=== PATIENT | female | born 1945 | race Caucasian/White ===

== ENCOUNTER → 2017-08-13 13:31 | Outpatient (CLI) | payer MEDICARE, SELFPAY ==
--- NOTE | 2017-08-13 13:37 | CT_ITS ---
STUDY: LOW DOSE CT LUNG CANCER SCREENING REASON FOR EXAM: Female, 71 years old. Current smoker. 50+ years smoking history. Currently smokes 2 packs per week. RADIATION DOSAGE (If Supplied By Facility): CTDIvol = ( 3.40 ) mGy, DLP = ( 105.09 ) mGycm TECHNIQUE: No contrast was administered. Low dose technique was utilized (average mAS-38 and kVp 120). 1.25 mm axial source images with a slice interval of 1.25-mm were reconstructed in lung windows. 2.5 mm axial source images with a slice interval of 2.5-mm were reconstructed in lung windows. 5.0 mm axial source images with a slice interval of 5.0-mm were reconstructed in soft tissue windows. Nodule measured using lung windows on PACS and/or independent workstation with automated measurement of minimum and maximum diameter. Nodule measurement reported as average diameter rounded to the nearest whole number. Growth is defined as an increase ins size of greater than 1.5 mm. COMPARISON: None. NODULES: Total lung nodules (excluding granulomas): 0 Emphysema: There are mild emphysematous changes. There is linear scarring in the right middle lobe and lower lingula. Endobronchial lesion: None Aorta: There is atherosclerotic tortuosity of the thoracic aorta without aneurysm. Coronary arteries: There are minimal coronary artery calcifications. Heart: The heart is normal in size. Pulmonary artery: Normal in size. Mediastinal nodes: None Other chest and abdominal findings: There are degenerative changes of the thoracic spine. CT/Low Dose CT Lung Screening IMPRESSION: Lung-RADS category 1 - Continue annual screening with LDCT in 12 months. IMPORTANT NOTES FOR USE: ACR Lung-RADS Version 1.0 Assessment Categories Release Date: July 13, 2013 Category: Coded 0-4 bases on nodule(s) with highest degree of suspicion. Negative screen is defined as categories 1 and 2; a positive screen is defined as categories 3 and 4. Category 3 and 4A nodules that are unchanged on interval CT should be coded as category 2, and individuals returned to screening in 12 months. Category 4X: Category 3 or 4 nodules with additional imaging findings that increase the suspicion of lung cancer, such as spiculation, GGN that doubles in size in 1 year, enlarged lymph notes, etc. Category Modifiers: S (significant finding unrelated to lung cancer) and C (prior history of treated lung cancer) may be added to the 0-4 Lung-RADS Electronically Signed: Marito Batres DO at 17:15 EDT Tel [phone], Service support ,
== END ==
PROVIDERS: Family Provider Family Medicine; PCP Family Medicine; Visit Provider Family Medicine
DX: Z12.2 Encounter for screening for malignant neoplasm of respiratory organs (principal); Z87.891 Personal history of nicotine dependence
CPT/HCPCS: G0297

== ENCOUNTER → 2018-10-31 15:14 | Outpatient (CLI) | payer MEDICARE, SELFPAY ==
--- NOTE | 2018-10-31 15:18 | CT_ITS ---
STUDY: LOW DOSE CT LUNG CANCER SCREENING REASON FOR EXAM: Female, 73 years old. Tobacco RADIATION DOSAGE (If Supplied By Facility): CTDIvol = ( 4.02 ) mGy, DLP = ( 140.44 ) mGycm TECHNIQUE: No contrast was administered. Low dose technique was utilized (average mAS-38 and kVp 120). 1.25 mm axial source images with a slice interval of 1.25-mm were reconstructed in lung windows. 2.5 mm axial source images with a slice interval of 2.5-mm were reconstructed in lung windows. 5.0 mm axial source images with a slice interval of 5.0-mm were reconstructed in soft tissue windows. Nodule measured using lung windows on PACS and/or independent workstation with automated measurement of minimum and maximum diameter. Nodule measurement reported as average diameter rounded to the nearest whole number. Growth is defined as an increase ins size of greater than 1.5 mm. COMPARISON: CT chest August 13, 2017 NODULES: Total lung nodules (excluding granulomas): 0 Emphysema: Mild emphysema. Endobronchial lesion: None Aorta: Normal Coronary arteries: Heart: Normal Pulmonary artery: Normal Mediastinal nodes: Normal Other chest and abdominal findings: Normal CT/Low Dose CT Lung Screening IMPRESSION: No significant pulmonary nodules or masses. LRADS 1. IMPORTANT NOTES FOR USE: ACR Lung-RADS Version 1.0 Assessment Categories Release Date: July 13, 2013 Category: Coded 0-4 bases on nodule(s) with highest degree of suspicion. Negative screen is defined as categories 1 and 2; a positive screen is defined as categories 3 and 4. Category 3 and 4A nodules that are unchanged on interval CT should be coded as category 2, and individuals returned to screening in 12 months. Category 4X: Category 3 or 4 nodules with additional imaging findings that increase the suspicion of lung cancer, such as spiculation, GGN that doubles in size in 1 year, enlarged lymph notes, etc. Category Modifiers: S (significant finding unrelated to lung cancer) and C (prior history of treated lung cancer) may be added to the 0-4 Lung-RADS Electronically Signed: Jason Mclaughlin, at 16:35 EDT Tel , Service support ,
== END ==
PROVIDERS: Family Provider Family Medicine; PCP Family Medicine; Referring Provider Internal Medicine Pulmonary Disease; Visit Provider Internal Medicine Pulmonary Disease
DX: Z12.2 Encounter for screening for malignant neoplasm of respiratory organs (principal); Z87.891 Personal history of nicotine dependence
CPT/HCPCS: G0297

== ENCOUNTER → 2019-10-14 14:49 | Outpatient (CLI) | payer MEDICARE, SELFPAY ==
[2019-10-14 14:06] VITALS: BMI 38.5
[2019-10-14 15:37] LABS: Anion Gap 4 (5-15); BUN 18 mg/dL (7-18); BUN/Creat Ratio 16.4 RATIO (10-20); Calcium,Total 9.2 mg/dL (8.5-10.1); Chloride 110 mmol/L (98-107); EST Glomerular Filtration Rate 52 mL/min (>60); Est Glom Filt Rate - Afr Amer 63 mL/min (>60); Glucose 85 mg/dL (74-106); Potassium 4.2 mmol/L (3.5-5.1); Sodium Level 140 mmol/L (136-145)
[2019-10-14 16:08] LABS: BNP,B-Type NATRIURETIC PEPTIDE 98.7 pg/mL (0-100)
== END ==
PROVIDERS: PCP Family Medicine; Referring Provider Internal Medicine Cardiovascular Disease; Visit Provider Internal Medicine Cardiovascular Disease
DX: R06.00 Dyspnea, unspecified (principal)
CPT/HCPCS: 36415; 80048; 83880

== ENCOUNTER → 2019-10-29 12:52 | Outpatient (CLI) | payer MEDICARE, SELFPAY ==
[2019-10-14 14:06] VITALS: BMI 38.5
--- NOTE | 2019-10-29 12:54 | ECHOD_ITS ---
Reason For Study: Dyspnea/SOB Procedure This was a 2D Doppler, Color Flow transthoracic echocardiogram. Exam performed in department. Left Ventricle Normal LV size. Left ventricular systolic function is normal. The estimated ejection fraction is 55 %. Stage 1 diastolic dysfunction. No regional wall motion abnormalities noted. Right Ventricle Normal RV size. Normal systolic function. Atria Normal left atrium. Normal right atrium. Bubble contrast study negative for right to left interatrial shunt. Mitral Valve Normal mitral valve. Tricuspid Valve Normal tricuspid valve. Mild (1+) tricuspid valve insufficiency. Pulmonary artery systolic pressure is 44 mmHg. Aortic Valve Normal aortic valve. Pulmonic Valve Normal pulmonic valve. Great Vessels Normal aortic root. The pulmonary artery is normal size. Normal inferior vena cava. Pericardium/Pleural No pericardial effusion. Medication Performed a rapid injection of agitated mix of 9 cc saline and 1cc air to assess for atrial septal defect. MMode/2D Measurements & Calculations LVIDd: 4.6 cm IVSd: 0.89 cm Ao root diam: 2.7 cm LVIDs: 2.8 cm LVPWd: 1.2 cm RVDd: 3.1 cm FS: 38.2 % LAV(MOD-bp): 54.3 ml LVAd ap4: 21.5 cm2 SV(MOD-sp4): 31.7 ml LAV(MOD-bp) Indexed: 27.8 ml/m2 EDV(MOD-sp4): 52.1 ml LAV(MOD-sp2): 66.2 ml EDV(sp4-el): 51.6 ml LAV(MOD-sp4): 41.2 ml LVAs ap4: 11.4 cm2 ESV(MOD-sp4): 20.5 ml ESV(sp4-el): 17.1 ml EF(MOD-sp4): 60.8 % EF(sp4-el): 66.9 % SV(sp4-el): 34.5 ml LA A4 area: 17.4 cm2 LA dimension(2D): 3.7 cm RA A4 area: 12.9 cm2 Doppler Measurements & Calculations MV E max curt: 87.4 cm/sec Lat Peak E' Curt: 10.3 cm/sec Med Peak E' Curt: 6.5 cm/sec MV A max curt: 120.0 cm/sec E/E' lat: 8.5 E/E' med: 13.5 MV E/A: 0.73 Ao V2 max: 198.9 cm/sec LV V1 max: 118.3 cm/sec PA V2 max: 108.7 cm/sec Ao max P.8 mmHg LV V1 max P.6 mmHg Ao V2 mean: 131.7 cm/sec Ao mean P.0 mmHg Ao V2 VTI: 36.6 cm TR max curt: 319.7 cm/sec TR max P.9 mmHg Interpretation Summary Normal LV size. Left ventricular systolic function is normal. The estimated ejection fraction is 55 %. Stage 1 diastolic dysfunction. Bubble contrast study negative for right to left interatrial shunt. Pulmonary artery systolic pressure is 44 mmHg. Ordering Physician: Paul Razo Referring Physician: Kermit Ramirez Performed By: Catia Martinez, RDRAYRAY, RVT
== END ==
PROVIDERS: PCP Family Medicine; Referring Provider Internal Medicine Cardiovascular Disease; Visit Provider Internal Medicine Cardiovascular Disease
DX: R06.00 Dyspnea, unspecified (principal); R06.02 Shortness of breath
CPT/HCPCS: 93306; A4216

== ENCOUNTER → 2020-09-08 14:45 | Outpatient (CLI) | payer MEDICARE, SELFPAY ==
[2019-10-14 14:06] VITALS: BMI 38.5
--- NOTE | 2020-09-08 14:53 | CT_ITS ---
STUDY: LOW DOSE CT LUNG CANCER SCREENING REASON FOR EXAM: Female, 74 years old. Tobacco use. RADIATION DOSAGE (If Supplied By Facility): CTDIvol = ( 4.02 ) mGy, DLP = ( 132.40 ) mGycm TECHNIQUE: No contrast was administered. Low dose technique was utilized (average mAS-38 and kVp 120). 1.25 mm axial source images with a slice interval of 1.25-mm were reconstructed in lung windows. 2.5 mm axial source images with a slice interval of 2.5-mm were reconstructed in lung windows. 5.0 mm axial source images with a slice interval of 5.0-mm were reconstructed in soft tissue windows. Nodule measured using lung windows on PACS and/or independent workstation with automated measurement of minimum and maximum diameter. Nodule measurement reported as average diameter rounded to the nearest whole number. Growth is defined as an increase ins size of greater than 1.5 mm. COMPARISON: 10/31/2018. NODULES: Nodule #: 1 Density: Solid Lung location: Right lower lobe: Pleural-based Location in series: Series Number: 2 Image: 168 Size - D1 x D2 mm: 15.8 x 14.4 mm: 15 mm average diameter Margin: Irregular Shape: Triangular Calcification: No Fat: No Temporal comparison: None Total lung nodules (excluding granulomas): 1 Emphysema: Diffuse emphysematous changes in the lungs. There is atelectatic changes in the lingula along the left oblique fissure. Endobronchial lesion: None Aorta: Diffuse atherosclerotic changes unchanged from prior study. Coronary arteries: Stable minimal coronary artery calcifications. Heart: Normal in size Pulmonary artery: Normal Mediastinal nodes: Stable nonspecific AP window lymphadenopathy. Other chest and abdominal findings: Degenerative changes of the thoracic spine. CT/Low Dose CT Lung Screening IMPRESSION: 1. Irregular density at the right lung base, labeled nodule 1. This is thought to be atelectatic rather than represent a mass. Mass however cannot be completely ruled out. 2. Stable emphysematous changes without other major on the prior study. Lung-RADS category 4A - Screening at 3 months with LDCT or evaluation with PET/CT may be used. IMPORTANT NOTES FOR USE: ACR Lung-RADS Version 1.1 Assessment Categories Release Date: 2018 Category: Coded 0-4 bases on nodule(s) with highest degree of suspicion. Negative screen is defined as categories 1 and 2; a positive screen is defined as categories 3 and 4. Category 3 and 4A nodules that are unchanged on interval CT should be coded as category 2, and individuals returned to screening in 12 months. Category 4X: Category 3 or 4 nodules with additional imaging findings that increase the suspicion of lung cancer, such as spiculation, GGN that doubles in size in 1 year, enlarged lymph notes, etc. Category Modifiers: S (significant finding unrelated to lung cancer) Electronically Signed: Marito Batres DO at 16:13 EDT Tel [phone], Service support ,
== END ==
PROVIDERS: PCP Family Medicine; Referring Provider Internal Medicine Pulmonary Disease; Visit Provider Internal Medicine Pulmonary Disease
DX: Z87.891 Personal history of nicotine dependence (principal); Z12.2 Encounter for screening for malignant neoplasm of respiratory organs
CPT/HCPCS: 71271

== ENCOUNTER → 2020-10-04 14:23 | Outpatient (CLI) | payer MEDICARE, SELFPAY ==
[2019-10-14 14:06] VITALS: BMI 38.5
--- NOTE | 2020-10-11 17:00 | PET_ITS ---
EXAMINATION: FDG PET-CT INDICATIONS: A 74-year-old female with reported history of pulmonary nodularity. COMPARISON EXAMINATION: CT of the chest report dated 09/08/20 TECHNIQUE: Following the intravenous administration of 11.47 mCi of F-18 deoxyglucose via the left antecubital fossa, multiplanar image acquisitions of the neck, chest, abdomen and pelvis to level of mid thigh, obtained at one hour post radiopharmaceutical administration contemporaneously interpreted with the current CT of the neck, chest, abdomen and pelvis, to level of mid thigh, dated 10/11/[address] of the chest report dated 09/08/20 reveals: BLOOD GLUCOSE LEVEL:?? 104 mg/dl? FINDINGS: 1. There is no quantitative scintigraphic evidence of abnormal increased glucose metabolism within the context of the right lower posterolateral lung-right lower lobe to correlate with structural changes noted on review of CT of the thorax dated 10/11/20. 2. Normal physiologic distribution of the radiopharmaceutical is apparent in the hepatic and splenic parenchyma, both renal units, bladder and visualized intestinal tract. The visualized portion of the cerebral cortical-subcortical structures demonstrate symmetric and preserved glucose metabolism. Diffuse radiopharmaceutical concentration is noted in all four quadrants of the abdomen and pelvis. There is an increase in radiopharmaceutical concentration observed in the fourth-fifth lumbar vertebrae at the intervertebral space to the left of the midline, second cervical vertebra involving the vertebral body to the left of the midline in proximity to the intervertebral disc space most consistent with components of degenerative arthritis. Pertinent CT findings are as follows: CHEST: The non-calcified density defined in the right lower posterior lung-right lower lobe reveals no evidence of increased tracer concentration. There are no parenchymal densities-nodules defined in the right and left hemithorax with discernible increased FDG concentration. Interfissural fluid defined in the left hemithorax is non-glucose avid. The previously described right lung parenchymal densities are non-glucose avid as described. Bilateral axillary soft tissue densities with fatty hilus are ametabolic. Subcentimeter mediastinal soft tissue is non-glucose avid. There is atherosclerotic calcification defined in the thoracic aorta without evidence of dilatation-aneurysm formation. Coronary arterial calcification is observed. ABDOMEN AND PELVIS: The gallbladder is surgically absent. Cyst formation is defined in the bilateral kidneys. There is atherosclerotic calcification defined in the abdominal aorta without evidence of dilatation-aneurysm formation. Pelvic arterial calcification is demonstrated. Colonic diverticulosis is noted without evidence of diverticulitis. Bilateral inguinal soft tissue densities with fatty hilus are non-glucose avid. SKELETAL: Degenerative changes are noted in the cervical, thoracic and lumbar spine without evidence of increased radiopharmaceutical concentration. PET/PET/CT Tumor Base -Thigh Init IMPRESSION: 1. NEGATIVE EXAMINATION. There is no quantitative scintigraphic evidence of abnormal increased glucose metabolism within the context of the right lower posterolateral lung-right lower lobe to correlate with structural changes noted on review of CT of the thorax dated 10/11/20. 2. Anatomic stability may be ensured in the nonglucose avid right lower lobe parenchymal density with repeat CT of the thorax in 3-6 months. (Craig, Seminars in Thoracic and Cardiovascular Surgery 14:292, 2001). Electronic Signature Rosales Hearn D.O. Accurate Quantification of SUVs for this report are calculated using the exclusive [employer] Technology. (U.S. Patent No. 10, 674, 983). Standardization and correction of the FDG SUV metric via [employer] technology allow for vendor non-specific objective quantitative examination comparison and optimization of the sensitivity and specificity of the FDG PET-CT examination. Electronically Signed: Rosales Hearn DO at 21:58 EDT Tel , Service support ,
== END ==
PROVIDERS: PCP Family Medicine; Referring Provider Internal Medicine Pulmonary Disease; Visit Provider Internal Medicine Pulmonary Disease
DX: R69 Illness, unspecified (principal)
CPT/HCPCS: 78815; A9552

== ENCOUNTER → 2020-11-01 12:00 | Outpatient (CLI) | payer MEDICARE, SELFPAY ==
[2019-10-14 14:06] VITALS: BMI 38.5
[2020-11-01 13:27] LABS: Absolute Lymphocyte Count 1.22 X10^3/uL (0.83-4.51); Absolute Neutrophil Count 7.3 X10^3/uL (2.0-7.7); Basophil# 0.08 X10^3/uL; Basophil% 0.9 % (0-1); Eosinophil# 0.11 X10^3/uL; Eosinophils% 1.2 % (0-5); Hematocrit 34.5 % (37-47); Hemoglobin 10.5 g/dL (12.0-15.0); Lymphocyte # 1.22 X10^3/ul (0.83-4.51); Lymphocyte % 13.1 % (19-41); Mean Corp Hgb Conc 30.4 g/dL (32-36); Mean Corpuscular Volume 78.9 fL (81-99); Mean Platelet Vol. 9.6 fl (6.2-12.0); Monocyte# 0.58 X10^3/uL; Monocyte% 6.2 % (0-10); NRBC Flagged by Analyzer 0 % (0-5); Neutrophil % 78.2 % (47-70); Platelet Count 411 K/mm3 (150-450); RBC Distribution Width CV 18.8 % (11.6-14.6); RBC Distribution Width SD 54.3 fl (35.1-43.9); Red Blood Count 4.37 M/mm3 (4.2-5.4); White Blood Count 9.3 K/mm3 (4.4-11.0)
[2020-11-01 13:48] LABS: BNP,B-Type NATRIURETIC PEPTIDE 27.4 pg/mL (0-100)
[2020-11-01 13:49] LABS: Anion Gap 4 (5-15); BUN 22 mg/dL (7-18); BUN/Creat Ratio 21.2 RATIO (10-20); Calcium,Total 9.6 mg/dL (8.5-10.1); Chloride 106 mmol/L (98-107); Creatinine, Serum 1.04 mg/dL (0.55-1.02); EST Glomerular Filtration Rate 55 mL/min (>60); Est Glom Filt Rate - Afr Amer 67 mL/min (>60); Glucose 89 mg/dL (74-106); Potassium 4.4 mmol/L (3.5-5.1); Sodium Level 135 mmol/L (136-145)
== END ==
PROVIDERS: PCP Family Medicine; Referring Provider Physician Assistant Medical; Visit Provider Physician Assistant Medical
DX: R06.00 Dyspnea, unspecified (principal); D64.9 Anemia, unspecified
CPT/HCPCS: 36415; 80048; 82274; 83880; 85025; 93225; 93226

== ENCOUNTER → 2020-11-03 | Outpatient (CLI) | payer MEDICARE, SELFPAY | END | disposition home or self-care (01) | LOC: LABSPEC 15:07 | PROVIDERS: PCP Family Medicine; Referring Provider Physician Assistant Medical; Visit Provider Physician Assistant Medical | DX: D64.9 Anemia, unspecified (principal) ==

== ENCOUNTER → 2020-11-28 13:49 | Outpatient (CLI) | payer MEDICARE, SELFPAY ==
--- NOTE | 2020-11-28 13:52 | ECHOD_ITS ---
Reason For Study: Dyspnea/SOB Procedure This was a 2D Doppler, Color Flow transthoracic echocardiogram. The study was technically difficult. Exam performed in department. Left Ventricle Normal LV size. Left ventricular systolic function is normal. The estimated ejection fraction is 60 %. Stage 2 diastolic dysfunction. No regional wall motion abnormalities noted. Right Ventricle Normal RV size. Normal systolic function. Atria Normal left atrium. Normal right atrium. Mitral Valve Normal mitral valve. Tricuspid Valve Normal tricuspid valve. Pulmonary artery systolic pressure is 58 mmHg. Moderate pulmonary hypertension. Moderate (2+) tricuspid valve insufficiency. Aortic Valve Normal aortic valve. Pulmonic Valve Normal pulmonic valve. Great Vessels Normal aortic root. The pulmonary artery is normal size. Normal inferior vena cava. Pericardium/Pleural No pericardial effusion. MMode/2D Measurements & Calculations LVIDd: 4.6 cm IVSd: 1.1 cm LA dimension: 3.6 cm LVIDs: 2.6 cm LVPWd: 1.1 cm FS: 43.4 % LAV(MOD-bp): 48.7 ml LA A4 area: 19.3 cm2 RA A4 area: 15.1 cm2 LAV(MOD-bp) Indexed: 24.9 ml/m2 LAV(MOD-sp2): 41.3 ml LAV(MOD-sp4): 49.8 ml Time Measurements MV dec time: 0.27 sec Doppler Measurements & Calculations MV E max curt: 111.3 cm/sec Lat Peak E' Curt: 11.6 cm/sec Med Peak E' Curt: 9.2 cm/sec MV A max curt: 132.9 cm/sec E/E' lat: 9.6 E/E' med: 12.1 MV E/A: 0.84 MV V2 max: 157.0 cm/sec MV P1/2t max curt: 141.6 cm/sec Ao V2 max: 156.7 cm/sec MV max P.9 mmHg MV P1/2t: 73.2 msec Ao max P.8 mmHg MV V2 mean: 84.3 cm/sec MV dec slope: 566.4 cm/sec2 MV mean P.4 mmHg MVA(P1/2t): 3.0 cm2 MV V2 VTI: 38.9 cm LV V1 max: 102.4 cm/sec PA V2 max: 93.4 cm/sec TR max curt: 369.1 cm/sec LV V1 max P.2 mmHg TR max P.5 mmHg ECHO/Echo Complete Interpretation Summary Normal LV size. Left ventricular systolic function is normal. The estimated ejection fraction is 60 %. Stage 2 diastolic dysfunction. Moderate pulmonary hypertension. Moderate (2+) tricuspid valve insufficiency. Ordering Physician: Federica Altman Referring Physician: Kermit Ramirez Performed By: Randolph Bullard RCS
== END ==
PROVIDERS: PCP Family Medicine; Referring Provider Physician Assistant Medical; Visit Provider Physician Assistant Medical
DX: I27.21 Secondary pulmonary arterial hypertension (principal)
CPT/HCPCS: 93306

== ENCOUNTER → 2021-01-04 09:14 | Outpatient (CLI) | payer MEDICARE, SELFPAY ==
--- NOTE | 2021-01-04 09:27 | RAD_ITS ---
PROCEDURE: Sniff test DATE OF EXAMINATION: 01/04/2021. INDICATION: Female, 75 years old. Shortness of breath and dyspnea. FLUOROSCOPY TIME (if supplied): (21 second) minutes/seconds. 2 images were obtained. Normal movement of both hemidiaphragms. RAD/Fluoroscopy 1 Hr or Less IMPRESSION: Normal movement of both hemidiaphragms. Electronically Signed: Luiz Sam MD at 15:44 EDT , Service support ,
[2021-01-04 10:39] LABS: Anion Gap 7 (5-15); BUN 43 mg/dL (7-18); BUN/Creat Ratio 25.4 RATIO (10-20); Calcium,Total 8.8 mg/dL (8.5-10.1); Chloride 106 mmol/L (98-107); Creatinine, Serum 1.69 mg/dL (0.55-1.02); EST Glomerular Filtration Rate 31 mL/min (>60); Est Glom Filt Rate - Afr Amer 38 mL/min (>60); Glucose 112 mg/dL (74-106); Potassium 4.2 mmol/L (3.5-5.1); Sodium Level 138 mmol/L (136-145)
== END ==
PROVIDERS: Physician Assistant Medical; PCP Family Medicine; Referring Provider Internal Medicine Pulmonary Disease; Visit Provider Internal Medicine Pulmonary Disease
DX: R06.02 Shortness of breath (principal)
CPT/HCPCS: 36415; 76000; 80048

== ENCOUNTER → 2021-01-31 14:20 | Outpatient (CLI) | payer MEDICARE, SELFPAY ==
[2021-01-31 15:14] LABS: Absolute Lymphocyte Count 1.77 X10^3/uL (0.83-4.51); Absolute Neutrophil Count 10.4 X10^3/uL (2.0-7.7); Basophil# 0.04 X10^3/uL; Basophil% 0.3 % (0-1); Eosinophil# 0.13 X10^3/uL; Hematocrit 35.7 % (37-47); Hemoglobin 10.4 g/dL (12.0-15.0); Lymphocyte # 1.77 X10^3/ul (0.83-4.51); Lymphocyte % 13.4 % (19-41); Mean Corp Hgb Conc 29.1 g/dL (32-36); Mean Corpuscular Hgb 24.1 pg (27.0-32.0); Mean Corpuscular Volume 82.6 fL (81-99); Monocyte# 0.78 X10^3/uL; Monocyte% 5.9 % (0-10); NRBC Flagged by Analyzer 0 % (0-5); Neutrophil # 10.37 X10^3/uL (2.7-7.7); Neutrophil % 78.2 % (47-70); POSITIVE MORPHOLOGY YES; Platelet Count 390 K/mm3 (150-450); RBC Distribution Width CV 22.5 % (11.6-14.6); RBC Distribution Width SD 66.4 fl (35.1-43.9); Red Blood Count 4.32 M/mm3 (4.2-5.4); White Blood Count 13.3 K/mm3 (4.4-11.0)
[2021-01-31 15:17] LABS: Differential Indicated SCAN CRITERIA MET
[2021-01-31 15:40] LABS: Anion Gap 5 (5-15); BUN 27 mg/dL (7-18); BUN/Creat Ratio 22.9 RATIO (10-20); Calcium,Total 9.7 mg/dL (8.5-10.1); Chloride 107 mmol/L (98-107); Creatinine, Serum 1.18 mg/dL (0.55-1.02); EST Glomerular Filtration Rate 48 mL/min (>60); Est Glom Filt Rate - Afr Amer 58 mL/min (>60); Glucose 99 mg/dL (74-106); Potassium 4.8 mmol/L (3.5-5.1); Sodium Level 140 mmol/L (136-145)
[2021-01-31 15:48] LABS: Anisocytosis 1+; Differential Comment SCANNED; Hypochromasia RARE
== END ==
PROVIDERS: PCP Family Medicine; Referring Provider Physician Assistant Medical; Visit Provider Physician Assistant Medical
DX: R06.00 Dyspnea, unspecified (principal); I27.21 Secondary pulmonary arterial hypertension; E78.5 Hyperlipidemia, unspecified
CPT/HCPCS: 36415; 80048; 85025

== ENCOUNTER 2021-02-13 07:54 | Day surgery (SDC) | payer MEDICARE, SELFPAY ==
[2021-02-08 10:32] VITALS: BMI 38.9
[2021-02-13 09:41] LABS: Blood Gas Specimen Type VEN; VBG BASE EXCESS 3 mmol/L (-1.0-3.5); VBG BASE EXCESS 5 mmol/L (-1.0-3.5); VBG Bicarbonate 28 mmol/L (22-26); VBG Bicarbonate 30 mmol/L (22-26); VBG PO2 34 mmHg (25-40); VBG PO2 35 mmHg (25-40); VBG SO2 62 % (50-70); VBG SO2 64 % (50-70); VBG TCO2 30 mmol/L (23-33); VBG TCO2 32 mmol/L (23-33); VBG pCO2 49.8 mmHg (41-51); VBG pCO2 53.6 mmHg (41-51); VBG pH 7.36 (7.32-7.42)
--- NOTE | 2021-02-13 09:46 | CL.D_ITS ---
Patient Name: ISAURA IVEY Study Date: 02/13/2021 Performing: Paul Razo MD Ht: 61.81 inches 157 cm : 1945 Wt: 213.85 lbs 97 kg Age: 75 Gender: female BSA: 1.96 PROCEDURE(S) PERFORMED OF39-[facility] ONLY CLINICAL PROFILE AND INDICATIONS Indications: Other Heart Failure: None Stress/Imaging Stress/Image Study Performed: No CAD Presentations: Other: SOB CONCLUSIONS The patient has pulmonary hypertension which is moderate. RECOMMENDATIONS Add lasix 40 mg daily. Follow with [facility] DESCRIPTION OF PROCEDURE The patient arrived to the procedure lab. The risks and benefits of the procedure as well as a full d escription of our services here and current unavailability of surgical backup were fully explained to the patient and/or their significant other prior to the catheterization. The Timeout was completed, verifying the correct patient and procedure. The patient's procedural site was prepped and draped in the usual fashion. Local anesthetic was given subcutaneously to right brachial region with Lidocaine 2%. Using a modified Seldinger technique, Venous access was obtained via the right brachiocephalic v ein, a 7Fr sheath was inserted. A 7Fr thermal dilution catheter was inserted and right heart pressure s were recorded, it was then advanced to PA position for cardiac outputs. Thermal dilution cardiac ou tputs were then recorded. O2 saturations were then obtained. The Thermal dilution catheter was then r emoved.The venous sheath was then pulled and manual compression applied until hemostasis achieved CORONARY ANGIOGRAPHY RIGHT HEART ASSESSMENT Thermal CO: 7.06 Thermal CI: 3.6 PW: 14 PA: 54/25 37 RV: 50/5 12 RA: 02/01 10 PVR: 261 Right Heart pressures - elevated COMPLICATIONS No Complications PROCEDURE MEDICATIONS Versed 1 mg IV Baby Aspirin (81mg) 1 Tabs PO @ 02/13/2021 08:37:34 SUMMARY OF HEMODYNAMIC DATA Time AIR REST ECG 08:34:03 RA 1810 (10) SV 09:32:46 RV 50/5, 12 09:33:02 PA 54/25 (37) PA 09:33:22 PW 18/16 (14) PV 09:33:42 PA 57/24 (34) 09:36:44 RV 50/5, 10 09:36:57 RA 01/12 (10) 09:37:06 Type SV CO (l/m) CI (l/m/ HR Time AIR REST Thermal 90.50 7.06 3.60 78 08:34:03 Label % O2 Pres/Loc Time AIR REST RA 62 SV 09:37:25 PA 63 PA 09:37:34 Signed By Paul Razo MD On 02/13/2021 9:45:10 AM Paul Razo MD
== END 2021-02-13 11:45 | disposition home or self-care (01) ==
LOC: CLSP 07:55
PROVIDERS: PCP Family Medicine; Referring Provider Internal Medicine Cardiovascular Disease; Visit Provider Internal Medicine Cardiovascular Disease
DX: I27.21 Secondary pulmonary arterial hypertension (principal); R06.02 Shortness of breath; I10 Essential (primary) hypertension; I65.23 Occlusion and stenosis of bilateral carotid arteries; E78.5 Hyperlipidemia, unspecified; E03.9 Hypothyroidism, unspecified; J44.9 Chronic obstructive pulmonary disease, unspecified; K21.9 Gastro-esophageal reflux disease without esophagitis; E66.9 Obesity, unspecified; F32.A Depression, unspecified; F41.9 Anxiety disorder, unspecified; Z79.82 Long term (current) use of aspirin; Z79.899 Other long term (current) drug therapy
CPT/HCPCS: 82803; 93451; 99152; 99153; J7040; C1751; C1769; C1894

== ENCOUNTER 2021-04-13 13:03 | Outpatient (CLI) | payer MEDICARE, SELFPAY ==
[2019-10-14 14:06] VITALS: BMI 38.5
--- NOTE | 2021-04-13 13:22 | CT_ITS ---
STUDY: CT CHEST WITHOUT CONTRAST REASON FOR EXAM: Female, 75 years old. Follow-up for right pulmonary nodule. RADIATION DOSAGE (If Supplied By Facility): CTDIvol = ( 17.62 ) mGy, DLP = ( 598.71 ) mGycm TECHNIQUE: Transaxial imaging was performed without the administration of intravenous contrast material. Multiplanar coronal and sagittal images were reformatted. Individualized dose optimization techniques were used for this CT. COMPARISON: Comparison is made with prior study dated 09/08/2020. FINDINGS: Mild degree of emphysematous changes. The previously seen nodular density in the peripheral lateral aspect of the right lower lobe as seen on axial #86 has decreased in size. It presently measures 5.8 mm. Residual atelectasis and/or scarring in the posterior aspect of the lingular segment of left upper lobe as well as the medial anterior aspect of the lingular segment of the left upper lobe and medial aspect of the right middle lobe. There is no demonstrated pleural abnormality. There are calcifications of the coronary arteries. There are multiple small lymph nodes within the mediastinum, which are normal in size and morphology most compatible with reactive lymph hyperplasia. Normal hilar regions. Normal unenhanced pulmonary arteries. Normal aorta arch and descending thoracic aorta. There are multi-level degenerative changes of the thoracic spine. There is no demonstrated abnormality of the visualized upper abdomen. CT/Chest without Contrast IMPRESSION: Interval decrease in size of the nodular densities in the peripheral lateral aspect of the right lower lobe and seen on axial #86. Electronically Signed: Luiz Sam MD at 14:08 EST ,
== END 2021-04-13 23:59 | disposition short-term general hospital (02) ==
LOC: CT 13:05
PROVIDERS: PCP Family Medicine; Visit Provider Internal Medicine Pulmonary Disease
DX: R91.1 Solitary pulmonary nodule (principal)
CPT/HCPCS: 71250

== ENCOUNTER → 2021-11-28 | Outpatient (CLI) | payer MEDICARE, SELFPAY ==
[2021-11-28 14:18] VITALS: PULSE 101; PULSE 104; PULSE 105; PULSE 88; PULSE 89; PULSE 90; PULSE 98; O2SAT 91; O2SAT 92; O2SAT 93; O2SAT 94
--- NOTE | 2021-11-29 07:48 | PCM.PSN.6M ---
PSN 6 Minute Walk Test 6 Minute Walk Test 6 Minute Walk Test: 6 Minute Walk Test PSN:6-Minute Walk Test Start: 11/28/21 14:18 Freq: Status: Active Protocol: [id number] Document 11/28/21 14:18 [facility] (Rec: 11/28/21 14:21 [facility] [id number]) 6 Minute Walk Test Date Performed 11/28/21 Time Performed 12:30 Height 5 ft 2 in Weight: 220 kg Weight in Pounds 485.[address]: Kiran Mathew Assistive device used: Walker Pre-test Oxygen Delivery Method Room Air Pulse Ox (%) 94 Pulse Rate (60-100 beats/min) 88 Dyspnea Umm Scale (0-10) 3 Reported Symptoms Increased Work of Breathing 1st minute Oxygen Delivery Method Room Air Pulse Ox (%) 93 Pulse Rate (60-100 beats/min) 88 Dyspnea Umm Scale (0-10) 3 Number of Rests Taken 0 Reported Symptoms Increased Work of Breathing 2nd minute Oxygen Delivery Method Room Air Pulse Ox (%) 91 Pulse Rate (60-100 beats/min) 90 Dyspnea Umm Scale (0-10) 3 Number of Rests Taken 0 Reported Symptoms Increased Work of Breathing 3rd minute Oxygen Delivery Method Room Air Pulse Ox (%) 92 Pulse Rate (60-100 beats/min) 98 Dyspnea Umm Scale (0-10) 3 Number of Rests Taken 0 Reported Symptoms Increased Work of Breathing 4th minute Oxygen Delivery Method Room Air Pulse Ox (%) 92 Pulse Rate (60-100 beats/min) 101 H Dyspnea Umm Scale (0-10) 4 Number of Rests Taken 1 Reported Symptoms Increased Work of Breathing 5th minute Oxygen Delivery Method Room Air Pulse Ox (%) 92 Pulse Rate (60-100 beats/min) 104 H Dyspnea Umm Scale (0-10) 4 Number of Rests Taken 0 Reported Symptoms Increased Work of Breathing 6th minute Oxygen Delivery Method Room Air Pulse Ox (%) 94 Pulse Rate (60-100 beats/min) 105 H Dyspnea Umm Scale (0-10) 4 Reported Symptoms Increased Work of Breathing Post-test Oxygen Delivery Method Room Air Pulse Ox (%) 94 Pulse Rate (60-100 beats/min) 89 Dyspnea Umm Scale (0-10) 3 Reported Symptoms Increased Work of Breathing Full Laps Walked 8 Partial Lap, Number of Tiles Walked 27 Total Distance Walked (ft) 499 Interpretation Interpretation: The patient was able to ambulate 499 feet over the course of 6 minutes on room air with the assistance of 1 break and a walker. The patient did have significant desaturation from a baseline of 94% to as low as 91%. Some reflexive tachycardia was noted. These findings are consistent with a musculoskeletal limitation exercise tolerance. Recommendations Recommendations: No supplemental oxygen is indicated at this time. However, patient will need to be followed closely given level of desaturation.
== END | disposition home or self-care (01) ==
LOC: PSN 12:44
PROVIDERS: PCP Family Medicine; Referring Provider Internal Medicine Critical Care Medicine; Visit Provider Internal Medicine Critical Care Medicine
DX: J44.9 Chronic obstructive pulmonary disease, unspecified (principal)
CPT/HCPCS: 94618

== ENCOUNTER → 2021-12-25 | Outpatient (CLI) | payer MEDICARE, SELFPAY ==
--- NOTE | 2021-12-25 10:58 | ECHOCS_ITS ---
Reason For Study: DYSPNEA Procedure This was a 2D Doppler, Color Flow transthoracic echocardiogram. Patient was uncooperative. Exam performed in department. Left Ventricle Normal LV size. Left ventricular systolic function is normal. The estimated ejection fraction is 60 %. Stage 2 diastolic dysfunction. No regional wall motion abnormalities noted. Right Ventricle Normal RV size. Normal systolic function. Atria Normal left atrium. Normal right atrium. Mitral Valve Normal mitral valve. Tricuspid Valve Normal tricuspid valve. Moderate (2+) tricuspid valve insufficiency. Pulmonary artery systolic pressure is 70 mmHg. Moderate pulmonary hypertension. Aortic Valve Normal aortic valve. Trisinus/trileaflet aortic valve. Pulmonic Valve Normal pulmonic valve. Great Vessels Normal aortic root. The pulmonary artery is normal size. Normal inferior vena cava. Pericardium/Pleural No pericardial effusion. MMode/2D Measurements & Calculations LVIDd: 4.0 cm IVSd: 1.2 cm Ao root diam: 3.0 cm LVIDs: 2.7 cm LVPWd: 1.5 cm RVDd: 3.8 cm FS: 33.0 % LAV(MOD-sp4): 50.3 ml LVAd ap4: 26.0 cm2 SV(MOD-sp4): 42.1 ml LVLd ap4: 8.1 cm EDV(MOD-sp4): 69.3 ml EDV(sp4-el): 70.4 ml LVAs ap4: 13.3 cm2 LVLs ap4: 6.6 cm ESV(MOD-sp4): 27.3 ml ESV(sp4-el): 22.9 ml EF(MOD-sp4): 60.7 % EF(sp4-el): 67.5 % SV(sp4-el): 47.6 ml LA A4 area: 19.4 cm2 LA dimension(2D): 3.7 cm RA A4 area: 15.2 cm2 Time Measurements MV dec time: 0.22 sec Doppler Measurements & Calculations MV E max curt: 111.3 cm/sec Lat Peak E' Curt: 10.4 cm/sec Med Peak E' Curt: 4.8 cm/sec MV A max curt: 110.5 cm/sec E/E' lat: 10.7 E/E' med: 23.1 MV E/A: 1.0 MV V2 max: 123.3 cm/sec Ao V2 max: 209.4 cm/sec MV max P.1 mmHg MV dec slope: 506.5 cm/sec2 Ao max P.5 mmHg MV V2 mean: 88.9 cm/sec Ao V2 mean: 142.8 cm/sec MV mean P.4 mmHg Ao mean P.3 mmHg MV V2 VTI: 35.6 cm Ao V2 VTI: 42.0 cm LV V1 max: 136.3 cm/sec TR max curt: 396.3 cm/sec LV V1 max P.4 mmHg TR max P.8 mmHg LV V1 mean P.6 mmHg LV V1 mean: 103.4 cm/sec LV V1 VTI: 30.9 cm ECHO/Echo Complete Interpretation Summary Normal LV size. Left ventricular systolic function is normal. The estimated ejection fraction is 60 %. Stage 2 diastolic dysfunction. Pulmonary artery systolic pressure is 70 mmHg. Moderate pulmonary hypertension. Ordering Physician: Lavern Rosa Referring Physician: Lavern Rosa Performed By: Martha Lord RCS
== END | disposition home or self-care (01) ==
LOC: CVS 10:57
PROVIDERS: PCP Family Medicine; Referring Provider Nurse Practitioner Acute Care; Visit Provider Nurse Practitioner Acute Care
DX: R06.00 Dyspnea, unspecified (principal)
CPT/HCPCS: 93306

== ENCOUNTER → 2022-03-23 | Outpatient (CLI) | payer MEDICARE, SELFPAY ==
--- NOTE | 2022-03-23 14:55 | CT_ITS ---
EXAM: CT CHEST, LUNG CANCER SCREENING WITHOUT INTRAVENOUS CONTRAST CLINICAL INDICATION: Tobacco Dependency TECHNIQUE: Helically acquired images were obtained of the chest without intravenous contrast using low dose (LDCT) lung cancer screening protocol. This CT exam was performed using one or more of the following dose reduction techniques: automated exposure control, adjustment of the mA and/or kV according to patient size, and/or use of iterative reconstruction technique. This report was created using [employer] report generation technology. COMPARISON: CT Lung Cancer Screening dated April 13 2021 FINDINGS: LUNGS AND PLEURAL SPACES: Previously noted 9 x 5 mm right lower lobe pulmonary nodule now measures 7 x 4 mm. Linear scarring again noted within the lingula and right middle lobe and within the left lower lobe. No evidence of lung mass or suspicious pulmonary nodule. Mild pulmonary emphysema. No pleural effusion or thickening. No pneumothorax. HEART: Normal. Heart size is normal. No pericardial effusion. No significant coronary artery calcifications. MEDIASTINUM: Normal. No mediastinal or hilar adenopathy. Esophagus is unremarkable. No hiatal hernia. THYROID: Normal. No thyroid lesions. BONES/JOINTS: Normal. No suspicious lytic or blastic abnormality. VASCULATURE: Normal. Thoracic aorta is non-dilated. LYMPH NODES: Normal. No enlarged lymph nodes. CT/Low Dose CT Lung Screening IMPRESSION: 1. Decrease in size of the right lower lobe pulmonary nodule. Persistent linear scarring within both lungs. Mild pulmonary emphysema. 2. ACR Lung CT Screening Reporting T Data System (Lung-RADS) score: 2 - Benign Appearance or Behavior. Recommend continued annual screening with low-dose CT (LDCT) in 12 months. Electronically Signed: Joaquin Ivan MD at 14:39 EST ,
== END | disposition home or self-care (01) ==
LOC: CT 14:54
PROVIDERS: PCP Family Medicine; Visit Provider Internal Medicine Critical Care Medicine
DX: Z12.2 Encounter for screening for malignant neoplasm of respiratory organs (principal); F17.210 Nicotine dependence, cigarettes, uncomplicated
CPT/HCPCS: 71271

== ENCOUNTER → 2022-05-31 | Outpatient (CLI) | payer MEDICARE, SELFPAY | END | disposition home or self-care (01) | LOC: SL 19:49 | PROVIDERS: PCP Family Medicine; Visit Provider Internal Medicine Critical Care Medicine | DX: G47.10 Hypersomnia, unspecified (principal) | CPT/HCPCS: 95810 ==

== ENCOUNTER → 2022-06-08 | Outpatient (CLI) | payer MEDICARE, SELFPAY ==
--- NOTE | 2022-06-09 07:28 | PFT ---
INTRODUCTION: The patient is a 76-year-old female that presents for pulmonary function studies secondary to a diagnosis of COPD. Respiratory therapy reported good patient effort. Bronchodilators were used during testing. INTERPRETATION: Forced expiration spirometry demonstrates the presence of a mild large airways obstructive ventilatory defect. There was no significant response to aerosolized bronchodilators. Spirograms are of good quality but do not plateau indicating slow emptying of the lungs. Body plus tomography was performed and revealed lung volumes to be within normal limits. Diffusing capacity by single breath CO was reduced to 69% of predicted. IMPRESSION: Irreversible mild large airways obstructive ventilatory impairment with symmetric reduction in diffusing capacity.
== END | disposition home or self-care (01) ==
LOC: PSN 10:32
PROVIDERS: PCP Family Medicine; Visit Provider Internal Medicine Critical Care Medicine
DX: J44.9 Chronic obstructive pulmonary disease, unspecified (principal)
CPT/HCPCS: 94060; 94726; 94729

== ENCOUNTER → 2022-06-12 | Outpatient (CLI) | payer MEDICARE, SELFPAY ==
--- NOTE | 2022-06-12 14:32 | RAD_ITS ---
EXAM: XR PELVIS, 1 OR 2 VIEWS CLINICAL INDICATION: ARTHRITIS ATTN: HIPS TECHNIQUE: Frontal view of the pelvis. This report was created using [employer] report generation technology. COMPARISON: None. FINDINGS: BONES/JOINTS: Moderate left hip joint space narrowing with mild marginal osteophytes involving the femoral head and subchondral sclerosis of the acetabulum. Mild bump along the superior aspect of the left femoral head neck junction that may cause cam type femoral acetabular impingement. No displaced fracture. Sacroiliac joints are unremarkable. No widening of the pubic symphysis. SOFT TISSUES: Unremarkable. No soft tissue swelling or gas. RAD/Pelvis 1 or 2 Views IMPRESSION: 1. Moderate arthrosis left hip. 2. Mild bump along the superior aspect of the left femoral head neck junction that may cause cam type femoral acetabular impingement. Electronically Signed: Jhonny Walls MD at 7:29 EDT ,
[2022-06-12 15:33] LABS: EXAGEN MAILED SPECIMEN
[2022-06-12 18:12] LABS: Basophil% 0.6 % (0-1); Eosinophils% 1.5 % (0-5); Hematocrit 37.5 % (37-47); Hemoglobin 11.8 g/dL (12.0-15.0); Lymphocyte % 18.7 % (19-41); Mean Corp Hgb Conc 31.5 g/dL (32-36); Mean Corpuscular Volume 95.4 fL (81-99); Mean Platelet Vol. 9.7 fl (6.2-12.0); Monocyte% 5.6 % (0-10); Neutrophil # 7.92 X10^3/uL (2.7-7.7); Neutrophil % 72.7 % (47-70); Platelet Count 486 K/mm3 (150-450); RBC Distribution Width CV 16.6 % (11.6-14.6); RBC Distribution Width SD 58.6 fl (35.1-43.9); Red Blood Count 3.93 M/mm3 (4.2-5.4); White Blood Count 10.9 K/mm3 (4.4-11.0)
[2022-06-12 18:13] LABS: Absolute Lymphocyte Count 2.03 X10^3/uL (0.83-4.51); Absolute Neutrophil Count 7.9 X10^3/uL (2.0-7.7); Basophil# 0.06 X10^3/uL; Eosinophil# 0.16 X10^3/uL; Lymphocyte # 2.03 X10^3/ul (0.83-4.51); Monocyte# 0.61 X10^3/uL; NRBC Flagged by Analyzer 0 % (0-5)
[2022-06-12 18:31] LABS: Color, Urine Yellow (Yellow); Glucose, Dipstick Normal (Normal); Ketone-Dipstick Negative (Negative); Leukocyte Esterase-Dipstick 500 /ul (Negative); Nitrite-Dipstick Negative (Negative); Occult Blood-Urine 25 /ul (Negative); Protein-Dipstick 15 mg/dl (Negative); Urine Bilirubin Dipstick Negative (Negative); Urine Clarity Clear (Clear); Urine Urobilinogen Normal (Normal)
[2022-06-12 18:36] LABS: Protein, Urine (Random) 17.2 mg/dL (<11.9); Protein:Creat Ratio 224 mg/g CRE (0-200)
[2022-06-12 18:45] LABS: ALB/GLOB Ratio 0.8 RATIO (0.9-2.4); AST(SGOT) 18 U/L (15-37); Alanine Aminotransfer ALT/SGPT 33 U/L (13-56); Albumin, Serum 3.9 g/dL (3.2-5.0); Alkaline Phosphatase 87 U/L (45-117); Anion Gap 6 (5-15); BUN 21 mg/dL (7-18); BUN/Creat Ratio 15.6 RATIO (10-20); Calcium,Total 10.3 mg/dL (8.5-10.1); Chloride 105 mmol/L (98-107); Creatinine, Serum 1.35 mg/dL (0.55-1.02); EST Glomerular Filtration Rate 41 mL/min (>60); Est Glom Filt Rate - Afr Amer 49 mL/min (>60); Globulin 4.8 g/dL (2.2-4.2); Glucose 85 mg/dL (74-106); Potassium 4.2 mmol/L (3.5-5.1); Protein, Total 8.7 g/dL (6.4-8.2); Sodium Level 133 mmol/L (136-145)
[2022-06-12 19:11] LABS: Hepatitis B Surface Antibody Non-Reactive; Hepatitis B Surface Antigen Non-Reactive (Nonreactive); Hepatitis C Antibody Non-Reactive (Nonreactive)
== END | disposition home or self-care (01) ==
LOC: MTLAB 14:30
PROVIDERS: PCP Family Medicine; Referring Provider Internal Medicine Rheumatology; Visit Provider Internal Medicine Rheumatology
DX: M06.4 Inflammatory polyarthropathy (principal); M47.892 Other spondylosis, cervical region; G25.81 Restless legs syndrome; R76.8 Other specified abnormal immunological findings in serum
CPT/HCPCS: 36415; 72170; 80053; 81002; 82570; 84156; 85025; 86706; 86803; 87340

== ENCOUNTER → 2022-09-21 | Outpatient (CLI) | payer MEDICARE, SELFPAY ==
[2022-09-21 13:27] VITALS: PULSE 74; PULSE 77; PULSE 85; PULSE 92; PULSE 95; PULSE 96; PULSE 97; O2SAT 96; O2SAT 97; O2SAT 98
--- NOTE | 2022-09-21 16:26 | PCM.PSN.6M ---
PSN 6 Minute Walk Test 6 Minute Walk Test 6 Minute Walk Test: 6 Minute Walk Test PSN:6-Minute Walk Test Start: 09/21/22 13:27 Freq: Status: Active Protocol: [id number].[id number] Document 09/21/22 13:27 BROOK (Rec: 09/21/22 13:32 BROOK [id number]) 6 Minute Walk Test Date Performed 09/21/22 Time Performed 11:45 Height 5 ft 2 in Weight: 207 lb Weight in Pounds 207.[address]: Kiran Mathew Assistive device used: Walker Pre-test Pulse Ox 96 Pulse Rate (60-100) 74 Dyspnea Umm Scale (0-10) 0 Exertion Umm Scale (6-20) 6 1st minute Oxygen Delivery Method Room Air Pulse Ox 98 Pulse Rate (60-100) 85 2nd minute Oxygen Delivery Method Room Air Pulse Ox 96 Pulse Rate (60-100) 92 3rd minute Oxygen Delivery Method Room Air Pulse Ox 97 Pulse Rate (60-100) 95 4th minute Oxygen Delivery Method Room Air Pulse Ox 96 Pulse Rate (60-100) 96 5th minute Oxygen Delivery Method Room Air Pulse Ox 96 Pulse Rate (60-100) 96 6th minute Oxygen Delivery Method Room Air Pulse Ox 97 Pulse Rate (60-100) 97 Dyspnea Umm Scale (0-10) 3 Exertion Umm Scale (6-20) 14 Post-test Oxygen Delivery Method Room Air Pulse Ox 98 Pulse Rate (60-100) 77 Full Laps Walked 10 Partial Lap, Number of Tiles Walked 26 Total Distance Walked (ft) 616 Interpretation Interpretation: Patient completed the 6 minute walk test uneventfully with no breaks. She covered 616 ft, consistent with a mild-moderate reduction in expected distance covered No oxygen desaturation noted on room air. Pulse ranged 74-97 BPM. Dyspnea level was 14 max on the Umm scale of 6-20, consistent with moderate dyspnea on exertion during the test. Trae Dawkins MD [facility] Pulmonary Medicine [facility] 09/21/22 4:30PM
== END | disposition home or self-care (01) ==
PROVIDERS: PCP Family Medicine; Referring Provider Internal Medicine Critical Care Medicine; Visit Provider Internal Medicine Critical Care Medicine
DX: J44.9 Chronic obstructive pulmonary disease, unspecified (principal)
CPT/HCPCS: 94618

== ENCOUNTER → 2022-10-17 | Outpatient (CLI) | payer MEDICARE, SELFPAY ==
--- NOTE | 2022-10-17 12:44 | ECHOD_ITS ---
Reason For Study: PHTN, SOB Procedure This was a 2D Doppler, Color Flow transthoracic echocardiogram. Exam performed in department. Left Ventricle Normal LV size. Left ventricular systolic function is normal. The estimated ejection fraction is 65 %. Stage 1 diastolic dysfunction. Right Ventricle Normal RV size. Normal systolic function. Atria Normal left atrium. Normal right atrium. Mitral Valve Normal mitral valve. Tricuspid Valve Normal tricuspid valve. Mild to moderate (1-2+) tricuspid valve insufficiency. Pulmonary artery systolic pressure is 46 mmHg. Aortic Valve Normal aortic valve. Peak aortic valve gradient 24 mmHg. Mean aortic valve gradient 11 mmHg. Pulmonic Valve Normal pulmonic valve. Great Vessels Normal aortic root. The pulmonary artery is normal size. Normal inferior vena cava. Pericardium/Pleural No pericardial effusion. MMode/2D Measurements & Calculations LVIDd: 4.3 cm IVSd: 1.1 cm LVOT diam: 1.9 cm LVIDs: 2.1 cm LVPWd: 1.1 cm LVOT area: 2.8 cm2 RVDd: 3.4 cm FS: 50.0 % Ao root diam: 3.1 cm LAV(MOD-bp): 40.8 ml LVAd ap4: 24.4 cm2 LAV(MOD-bp) Indexed: 20.9 ml/m2 LVLd ap4: 8.3 cm LAV(MOD-sp2): 32.5 ml EDV(MOD-sp4): 62.3 ml LAV(MOD-sp4): 40.2 ml EDV(sp4-el): 61.3 ml LVAs ap4: 11.7 cm2 LVLs ap4: 6.9 cm ESV(MOD-sp4): 19.3 ml ESV(sp4-el): 16.9 ml EF(MOD-sp4): 68.9 % EF(sp4-el): 72.3 % LVAd ap2: 23.0 cm2 SV(MOD-sp4): 42.9 ml SV(MOD-sp2): 42.0 ml LVLd ap2: 8.3 cm EDV(MOD-sp2): 57.9 ml EDV(sp2-el): 54.2 ml LVAs ap2: 10.7 cm2 LVLs ap2: 6.9 cm ESV(MOD-sp2): 15.8 ml ESV(sp2-el): 13.9 ml EF(MOD-sp2): 72.6 % SV(sp4-el): 44.3 ml LA dimension(2D): 4.3 cm LA A4 area: 17.0 cm2 RA A4 area: 15.3 cm2 TAPSE: 2.6 cm Time Measurements MV dec time: 0.29 sec Doppler Measurements & Calculations MV E max curt: 92.0 cm/sec Lat Peak E' Curt: 11.4 cm/sec Med Peak E' Curt: 6.2 cm/sec MV A max curt: 123.5 cm/sec E/E' lat: 8.1 E/E' med: 14.7 MV E/A: 0.74 Ao V2 max: 243.4 cm/sec LV V1 max: 126.3 cm/sec MV dec slope: 317.2 cm/sec2 Ao max P.7 mmHg LV V1 max P.4 mmHg Ao V2 mean: 157.6 cm/sec LV V1 mean P.5 mmHg Ao mean P.3 mmHg LV V1 mean: 87.9 cm/sec Ao V2 VTI: 46.7 cm LV V1 VTI: 27.9 cm AV (velocity ratio): 0.60 DOMINIK(I,D): 1.7 cm2 DOMINIK(V,D): 1.4 cm2 SV(LVOT): 77.3 ml PA V2 max: 88.7 cm/sec TR max curt: 326.8 cm/sec TR max P.7 mmHg ECHO/Echo Complete Interpretation Summary Normal LV size. Left ventricular systolic function is normal. The estimated ejection fraction is 65 %. Stage 1 diastolic dysfunction. Pulmonary artery systolic pressure is 46 mmHg. Ordering Physician: Federica Altman/Paul Razo Referring Physician: MD Kermit Cast Performed By: Delmy Pereyra, [place]
== END | disposition home or self-care (01) ==
PROVIDERS: PCP Family Medicine; Referring Provider Physician Assistant Medical; Visit Provider Physician Assistant Medical
DX: I27.20 Pulmonary hypertension, unspecified (principal); R06.00 Dyspnea, unspecified; R00.2 Palpitations
CPT/HCPCS: 93306

== ENCOUNTER → 2022-12-19 | Outpatient (CLI) | payer MEDICARE, SELFPAY ==
--- NOTE | 2022-12-19 13:40 | RAD_ITS ---
STUDY: X-RAY - CERVICAL SPINE REASON FOR EXAM: Female, 77 years old. Neck pain. TECHNIQUE: 3 view(s) of the cervical spine were obtained on 4 images. COMPARISON: None FINDINGS: Osteopenia. Normal anterior atlantoaxial articulation. Normal odontoid process. Normal cervical lordosis. Diffuse moderate to marked uncovertebral and facet sclerosis. Diffuse intervertebral disc space narrowing most marked at C3-4, C4-5, C5-6 and C6-7. Right carotid calcification. RAD/Cerv Spine 2 or 3 Views IMPRESSION: Osteopenia with moderate to marked cervical spondylosis as described. No acute abnormality or erosive changes. Electronically Signed: Ang Weaver MD at 15:03 EDT ,
--- NOTE | 2022-12-19 13:40 | RAD_ITS ---
STUDY: X-RAY - LUMBAR SPINE REASON FOR EXAM: Female, 77 years old. Pain. Evaluate for disc degeneration. TECHNIQUE: 3 view(s) of the lumbar spine were obtained. COMPARISON: None FINDINGS: Osteopenia. Normal lumbar lordosis. Rotatory levoscoliosis. Normal alignment of the vertebrae. Endplate concavities compatible with osteoporosis. Diffuse lower thoracic and lumbosacral facet sclerosis. Diffuse intervertebral disc space narrowing with small osteophytes. Marked vascular calcification. Cholecystectomy clips. RAD/Lumbar Spine 2 or 3 Views IMPRESSION: Osteopenia with moderate lumbosacral spondylosis. Electronically Signed: Ang Weaver MD at 15:01 EDT ,
== END | disposition home or self-care (01) ==
PROVIDERS: PCP Family Medicine; Referring Provider Anesthesiology; Visit Provider Anesthesiology
DX: M47.812 Spondylosis without myelopathy or radiculopathy, cervical region (principal); M51.36 Other intervertebral disc degeneration, lumbar region
CPT/HCPCS: 72040; 72100

== ENCOUNTER → 2023-01-07 | Outpatient (CLI) | payer MEDICARE, SELFPAY ==
--- NOTE | 2023-01-07 10:32 | MRI_ITS ---
STUDY: MRI LUMBAR SPINE WITHOUT CONTRAST REASON FOR EXAM: Female, 77 years old. DDD TECHNIQUE: Standardized fat and water weighted pulse sequences were obtained in the sagittal and axial planes. COMPARISON: Radiographic study December 19, 2022 FINDINGS: T12-L1: Normal endplates. Normal disc height, hydration and morphology. Normal bilateral facet joints. Normal central canal and bilateral lateral recesses. Normal bilateral intervertebral neural foramina. Normal lumbar lordosis. There is moderate to severe levo scoliosis. Normal conus medullaris that terminates at L1 desiccation and tiny central disc protrusion L1-2: Normal endplates. Narrowed disc space with desiccation of the disc and minimal annular bulge. Normal bilateral facet joints. Normal central canal and bilateral lateral recesses. Normal bilateral intervertebral neural foramina. L2-3: Degenerative endplate changes. Narrowed disc space with desiccation of the disc and minimal annular bulge. Mild facet arthropathy more pronounced on the right. Mild narrowing of the central canal exaggerated by posterior epidural fat. Normal bilateral lateral recesses. Mild left neural foraminal stenosis and moderate narrowing on the right L3-4: Narrowed disc space and degenerative endplate changes. Desiccation of the disc and minimal bulging disc osteophyte complex. Facet arthropathy and thickening of ligamenta flava slightly more pronounced on the left. Moderate narrowing of central canal exaggerated posterior epidural fat.. Moderate bilateral lateral recess stenosis and neural foraminal encroachment exaggerated by shortened pedicles L4-5: Normal endplates. Normal disc height, desiccation and tiny left foraminal disc protrusion and facet arthropathy and mild thickening of ligamenta flava. Mild narrowing of central canal due to posterior epidural fat. Normal bilateral lateral recesses. Moderate to severe left neuroforaminal stenosis L5-S1: Normal endplates. Normal disc height, desiccation and minor annular bulge with left posterolateral/foraminal disc protrusion.. Facet arthropathy. Mild narrowing of central canal due to posterior epidural fat. Moderate left lateral recess and neural foraminal stenosis Normal visualized sacral ala. Normal visualized paraspinous soft tissue structures. Incidental finding of bilateral renal cysts Findings not changed appreciably since prior study given inherent differences in imaging techniques MRI/Spine Lumbar (Routine) IMPRESSION: Scoliosis and degenerative changes. Multilevel spinal stenosis secondary to disc disease and bony hypertrophy Findings as above Electronically Signed: Jason Fischer MD at 19:53 EDT ,
== END | disposition home or self-care (01) ==
LOC: MRI 10:07
PROVIDERS: PCP Family Medicine; Referring Provider Anesthesiology; Visit Provider Anesthesiology
DX: M51.36 Other intervertebral disc degeneration, lumbar region (principal)
CPT/HCPCS: 72148

== ENCOUNTER → 2023-03-04 | Outpatient (CLI) | payer MEDICARE, SELFPAY ==
--- NOTE | 2023-03-04 12:05 | RAD_ITS ---
EXAM: XR RIGHT SHOULDER COMPLETE, 2 OR MORE VIEWS CLINICAL INDICATION: SHOULDER PAIN TECHNIQUE: Two or more views of the right shoulder. COMPARISON: No relevant prior studies available. FINDINGS: BONES/JOINTS: Coarse calcifications adjacent to the proximal humeral diaphysis. Joint space narrowing of the glenohumeral joint with prominent marginal osteophytes involving the inferior humeral head margin. No acute fracture. No subluxation. Normal alignment. No sclerotic or destructive changes observed. SOFT TISSUES: Small calcification in the region of the supraspinatus tendon may be due to calcific tendinitis. No soft tissue swelling or gas. No radiopaque foreign body. RAD/Shoulder min 2 Views IMPRESSION: 1. Coarse calcifications adjacent to the proximal humeral diaphysis. This may be due to latissimus dorsi/teres major calcific tendinitis. 2. Small calcification in the region of the supraspinatus tendon may be due to calcific tendinitis. 3. Joint space narrowing of the glenohumeral joint with prominent marginal osteophytes involving the inferior humeral head margin. Electronically Signed: Jhonny Walls MD at 4:09 EST ,
== END | disposition home or self-care (01) ==
LOC: RAD 11:58
PROVIDERS: PCP Family Medicine; Referring Provider Anesthesiology; Visit Provider Anesthesiology
DX: M25.519 Pain in unspecified shoulder (principal)
CPT/HCPCS: 73030

== ENCOUNTER → 2023-05-15 | Outpatient (CLI) | payer MEDICARE, SELFPAY ==
--- NOTE | 2023-05-15 15:05 | CT_ITS ---
STUDY: LOW DOSE CT LUNG CANCER SCREENING REASON FOR EXAM: Female, 77 years old. Tobacco Dependency. Patient smoked 1 pack per day for 50 years. COPD. RADIATION DOSAGE (If Supplied By Facility): CTDIvol = ( 3.18 ) mGy, DLP = ( 100.06 ) mGycm TECHNIQUE: No contrast was administered. Low dose technique was utilized (average mAS-38 and kVp 120). 1.25 mm axial source images with a slice interval of 1.25-mm were reconstructed in lung windows. 2.5 mm axial source images with a slice interval of 2.5-mm were reconstructed in lung windows. 5.0 mm axial source images with a slice interval of 5.0-mm were reconstructed in soft tissue windows. COMPARISON: Comparison is made with prior study March 23, 2022. NODULES: Emphysema: Hyperinflation. Mild degree of emphysematous changes. Stable linear scarring seen in the anterior medial aspect of the right middle lobe as well as in the segment of the left upper lobe. Stable 7 mm x 4 mm nodule in the right lower lobe. Mild scarring in the right lower lobe. Endobronchial lesion: None Aorta: Atherosclerotic plaque formation of the aortic arch. CORONARY ARTERIES: Coronary artery calcification is seen. Heart: Unremarkable Pulmonary artery: Unremarkable. Mediastinal nodes: Unremarkable. Other chest and abdominal findings: CT/Low Dose CT Lung Screening IMPRESSION: Lung-RADS category 2 - Continue annual screening with LDCT in 12 months. IMPORTANT NOTES FOR USE: ACR Lung-RADS Version 1.1 Assessment Categories Release Date: 2018 Category: Coded 0-4 bases on nodule(s) with highest degree of suspicion. Negative screen is defined as categories 1 and 2; a positive screen is defined as categories 3 and 4. Category 3 and 4A nodules that are unchanged on interval CT should be coded as category 2, and individuals returned to screening in 12 months. Category 4X: Category 3 or 4 nodules with additional imaging findings that increase the suspicion of lung cancer, such as spiculation, GGN that doubles in size in 1 year, enlarged lymph notes, etc. Category Modifiers: S (significant finding unrelated to lung cancer) Electronically Signed: Luiz Sam MD at 15:43 EST ,
== END | disposition home or self-care (01) ==
LOC: CT 15:04
PROVIDERS: PCP Family Medicine; Referring Provider Internal Medicine Critical Care Medicine; Visit Provider Internal Medicine Critical Care Medicine
DX: Z12.2 Encounter for screening for malignant neoplasm of respiratory organs (principal); F17.210 Nicotine dependence, cigarettes, uncomplicated
CPT/HCPCS: 71271

== ENCOUNTER 2023-11-20 15:10 | Emergency (ER) | payer MEDICARE, SELFPAY ==
[2023-11-20] VITALS (7 sets, daily range): BP systolic 153–165; BP diastolic 51–81; PULSE 76–87; RESP 16–21; TEMP 36.4; O2SAT 95–96; BMI 40.8
--- NOTE | 2023-11-20 15:21 | EKG12_ITS ---
Test Reason : Blood Pressure : / mmHG Vent. Rate : 081 BPM Atrial Rate : 081 BPM P-R Int : 136 ms QRS Dur : 074 ms QT Int : 338 ms P-R-T Axes : 064 044 072 degrees QTc Int : 392 ms Normal sinus rhythm Normal ECG Confirmed by LORIE TERAN, MELVIN ([id number]), map editor ALEXANDRO CLEMENS ([id number]) on 11/21/2023 1:50:36 PM Referred By: Confirmed By:MELVIN MELO MD
--- NOTE | 2023-11-20 15:22 | ED.VIS.DYS ---
HPI History of Present Illness Chief Complaint: Shortness of Breath Detail of Chief Complaint: Shortness of breath Informant: patient Narrative Narrative: Patient presents with shortness of breath that started 2 weeks ago. She describes exertional dyspnea. Also mentions that within the last 2 weeks she is also had her thyroid medicine increased and is not sure if it is related. She has not cough with some clear phlegm brought up at times. Denies fevers. Denies chest pain. Denies recent travel or surgery. She has history of COPD and wears home O2 as needed only. Also has been using her inhaler at home. Patient denies history of PE or DVT. No history of CHF. She is complaining of some swelling in both lower extremities, mostly the feet. [facility] Medical History Fecal incontinence Hyperhidrosis Upper extremity weakness Tremor Insomnia Hypokalemia Chronic diarrhea Secondary pulmonary arterial hypertension Antral ulcer Diverticulosis Hiatal hernia GERD (gastroesophageal reflux disease) Excessive somnolence disorder Essential tremor RLS (restless legs syndrome) Anxiety and depression Bilateral carotid artery stenosis Hypothyroidism COPD (chronic obstructive pulmonary disease) Nicotine dependence Essential (primary) hypertension Hyperlipidemia Obesity Home Medications ?Medication ?Instructions ?Recorded ?Last Taken ?Type albuterol sulfate 90 mcg/actuation 2 puff inhalation Q6H PRN 10/13/19 Unknown History aerosol inhaler (ProAir HFA) Shortness Of Breath Or Wheezing aspirin 81 mg tablet,delayed 81 mg PO DAILY 10/13/19 02/13/21 History release (Adult Aspirin Regimen) lorazepam 0.5 mg tablet 0.5 mg PO BID PRN Anxiety 10/14/19 02/13/21 History lovastatin 20 mg tablet 20 mg PO DAILY 08/02/22 Unknown History lovastatin 40 mg tablet 40 mg PO DAILY 08/02/22 Unknown History olmesartan 20 mg tablet (Benicar) 20 mg PO DAILY #90 tabs 01/04/23 Unknown Rx spironolactone 25 mg tablet 25 mg PO DAILY #30 tabs 02/25/23 Unknown Rx furosemide 40 mg tablet (Lasix) 40 mg PO DAILY #90 tabs 05/10/23 Unknown Rx budesonide 160 mcg-glycopyr 9 2 inh inhalation BID #10.7 grams 11/13/23 Unknown Rx mcg-formot 4.8 mcg/actuation HFA inhaler (Breztri Aerosphere) doxycycline monohydrate 100 mg 100 mg PO BID #20 CAPSULES 11/20/23 Unknown Rx capsule fluoxetine 20 mg tablet 20 mg PO DAILY 11/20/23 Unknown History levothyroxine 175 mcg tablet 175 mcg PO DAILY 11/20/23 Unknown History prednisone 20 mg tablet 20 mg PO BID #10 tabs 11/20/23 Unknown Rx Allergy/AdvReac Type Severity Reaction Status Date / Time No Known Allergies Allergy Verified 11/20/23 15:13 Surgical History History of right heart catheterization (02/13/21) History of left heart catheterization (2009) History of hysterectomy History of cholecystectomy Social History Smoking Status: Current every day smoker tobacco type: cigarettes Tobacco: How many years used: 40 Electronic Cigarette Use: not used second hand exposure: Yes alcohol intake: never substance use type: does not use caffeine: Yes Type: coffee Number of servings: 2 ROS ROS ED Review of Systems ROS Unobtainable: other Constitutional Constitutional ED: Reports lethargy; Denies chills, fever(s), sweats or weight loss Eyes Eyes: Denies blurry vision, change in vision or diplopia ENT ENT ED: Denies rhinorrhea or sore throat Cardiovascular Cardiovascular: Denies chest pain, orthopnea or racing heartbeat Respiratory/Chest Respiratory/Chest: Reports cough, dyspnea, dyspnea on exertion and sputum; Denies orthopnea Gastrointestinal Gastrointestinal: Denies abdominal pain, diarrhea, nausea or vomiting Genitourinary Genitourinary ED: Denies dysuria, hematuria or urinary frequency Musculoskeletal Musculoskeletal: Denies arthralgias, back pain, myalgias or neck pain Integumentary Denies abscess, Abrasions or rash Neurologic Neurologic: Denies headache(s) or weakness Psychiatric Psychiatric: Denies anxiety, depression or suicidal thoughts Endocrine Endocrinology: Denies polydipsia, polyphagia or polyuria Hematologic/Lymphatic Hematologic/Lymphatic: Denies easy bleeding, easy bruising or lymphadenopathy Allergic/Immunologic Allergic/Immunologic ED: Denies mouth swelling, tongue swelling or urticaria EXAM Physical Exam Const Vital Signs: 11/20/23 15:11 11/20/23 15:12 11/20/23 15:51 Temperature 97.6 F L 97.6 F L Temperature Source Temporal Temporal Pulse Rate 85 85 Respiratory Rate 16 16 Respiratory Effort Respiratory Depth Respiratory Pattern Blood Pressure 153/81 H 153/81 H Blood Pressure Mean 105 105 Pulse Ox 96 96 Oxygen Delivery Method Room Air Room Air Room Air 11/20/23 15:51 11/20/23 15:53 11/20/23 16:12 Temperature 97.6 F L Temperature Source Temporal Pulse Rate 81 87 Respiratory Rate 21 H 18 Respiratory Effort Short of Breath Respiratory Depth Shallow Respiratory Pattern Tachypnea Blood Pressure 158/53 H Blood Pressure Mean 88 Pulse Ox 95 Oxygen Delivery Method Room Air Room Air Positive well nourished and well developed General Appearance ED: well developed and NAD HEENT Reports TM's clear and moist mucous membranes normocephalic and atraumatic; Negative for trauma or tenderness Tympanic Membrane ED: Yes TM's clear Eyes PERRL and EOMs intact bilaterally General Eye ED: Negative for pale conjunctiva or scleral icterus Neck no lymphadenopathy, supple and no JVD General: Negative for tenderness Chest Wall inspection of chest normal and palpation of chest normal Chest: Negative for tenderness Resp normal respiratory effort Resp Narrative: Good aeration bilaterally. Occasional faint expiratory wheeze. No conversational dyspnea. No accessory muscle use or retractions. Effort and Inspection: Negative for respiratory distress or pain with movement Auscultation: Negative for rhonchi, wheezes or diminished lung sounds Cardio regular rate, regular rhythm, S1 normal heart sound, S2 normal heart sound and no murmurs Peripheral Pulses: pulses 2+ throughout GI normal to inspection, nondistended, normoactive bowel sounds, soft to palpation, non-tender, non-distended and no masses Back/Spine no CVA tenderness and no thoracic nor lumbar tenderness Extremity normal to inspection General Extremety ED: Negative for edema General Extremity: Negative for edema Neuro oriented x3, CN's II-XII intact bilaterally, no sensory deficits noted and gait normal Sensorium / Orientation: awake, alert, oriented to person, oriented to place and oriented to time Motor Exam: strength 5/5 throughout and strength abnormal Psych mental status grossly normal Skin no rashes or lesions noted and no wounds MDM MDM MDM Narrative Medical decision making narrative: Patient with exertional dyspnea x 2 weeks. Denies any significant chest pain. She has had no fever. Denies recent travel or surgery. In the differential would be COPD exacerbation versus infectious etiology such as pneumonia or viral infection. Coronary artery disease would be in the differential although I feel is less likely. PE would be in the differential. EKG obtained showed a sinus rhythm with ventricular rate of 81 bpm with no acute ST segment changes. CBC with differential showed a slightly elevated white count of 12.3 with hemoglobin 10.7 and platelet count of 380. Chemistries unremarkable. BUN 28 and creatinine 1.45. Troponin normal at 18. BNP was normal at 90.6. And TSH was normal at 1.23. 1 view chest x-ray obtained was unremarkable for infection or any acute process. D-dimer was normal at 0.42. While in department she received a DuoNeb aerosol. She did feel improved with that. I will start her on prednisone and doxycycline. Suspect likely COPD exacerbation. Advised to follow-up with her speech language specialist and primary care physician within the next 3 to 5 days. Advised return if increasing shortness of breath, chest pain, or condition should worsen anyway. Clinically she looks well and I feel she can be discharged to home. Lab Data Attestation: I reviewed the patient's lab results. Labs: Laboratory Results - last 24 hr 11/20/23 15:23 WBC 12.3 H RBC 3.43 L Hgb 10.7 L Hct 33.2 L MCV 96.8 MCH 31.2 MCHC 32.2 RDW Std Deviation 51.5 H RDW Coeff of Lacy 14.4 Plt Count 380 MPV 9.6 Immature Gran % (Auto) 0.700 Neut % (Auto) 83.7 H Lymph % (Auto) 8.2 L [place] % (Auto) 6.4 Eos % (Auto) 0.6 Baso % (Auto) 0.4 Absolute Neuts (auto) 10.3 H Absolute Lymphs (auto) 1.00 Nucleated RBC % 0 D-Dimer Quant (PE/DVT) 0.42 Sodium 136 Potassium 4.9 Chloride 108 H Carbon Dioxide 24.0 Anion Gap 4 L BUN 28 H Creatinine 1.45 H Estim Creat Clear Calc 36.17 Est GFR (MDRD) Af Amer 45 L Est GFR (MDRD) Non-Af 37 L BUN/Creatinine Ratio 19.3 Glucose 99 Calcium 9.6 Troponin I High Sens 18 B-Natriuretic Peptide 90.6 TSH 1.230 Radiography Diagnostic Testing: Clinical Impression(s) from Imaging Studies Chest X-Ray 11/20/23 15:32 IMPRESSION: No radiographic evidence of acute cardiopulmonary disease. Electronically Signed: Andres Cervantes MD at 16:32 EDT , 1 view chest x-ray obtained interpreted by myself as no evidence of infiltrate or pneumothorax or acute disease process. Radiology in agreement. EKG Initial EKG: Attestation: I personally reviewed and interpreted this EKG as follows: Comments: Sinus rhythm with rate of 81 bpm with no acute ST segment changes Discharge Plan Triage Chief Complaint: Shortness of Breath ED Provider: Bea Santamaria Dx/Rx/DC Orders Clinical Impression: Acute dyspnea, COPD exacerbation Instructions: ED COPD Flare, ED Dyspnea Prescriptions: New doxycycline monohydrate 100 mg capsule 100 mg PO BID Qty: 20 0RF prednisone 20 mg tablet 20 mg PO BID Qty: 10 0RF No Action lorazepam 0.5 mg tablet 0.5 mg PO BID PRN (Reason: Anxiety) aspirin [Adult Aspirin Regimen] 81 mg tablet,delayed release (DR/EC) 81 mg PO DAILY albuterol sulfate [ProAir HFA] 90 mcg/actuation HFA aerosol inhaler 2 puff INHALATION Q6H PRN (Reason: Shortness Of Breath Or Wheezing) lovastatin 40 mg tablet 40 mg PO DAILY Patient Comments: Take with 20mg lovastatin 20 mg tablet 20 mg PO DAILY Patient Comments: Take with 40mg dose levothyroxine 175 mcg tablet 175 mcg PO DAILY fluoxetine 20 mg tablet 20 mg PO DAILY olmesartan [Benicar] 20 mg tablet 20 mg PO DAILY Qty: 90 3RF spironolactone 25 mg tablet 25 mg PO DAILY Qty: 30 11RF furosemide [Lasix] 40 mg tablet 40 mg PO DAILY Qty: 90 3RF Breztri Aerosphere 160-9-4.8 mcg/actuation HFA aerosol inhaler 2 inh inhalation BID Qty: 10.7 6RF Primary Care Provider: Kermit Ramirez Referrals: Kermit Ramirez MD [Primary Care Provider] - 3-5 Days Print Language: Niuean Disposition Disposition: Home, Self Care
--- NOTE | 2023-11-20 15:32 | RAD_ITS ---
INDICATION: dyspnea EXAMINATION/TECHNIQUE: X-RAY - portable upright AP chest x-ray COMPARISON: Chest CT 05/15/2023 FINDINGS: LINES/DEVICES: None. LUNGS: No consolidation, edema or effusion. No pneumothorax. MEDIASTINUM AND CARDIOVASCULAR STRUCTURES: Cardiac silhouette stable within upper normal limits. BONES AND SOFT TISSUES: No acute changes. RAD/Chest 1 View (Portable) IMPRESSION: No radiographic evidence of acute cardiopulmonary disease. Electronically Signed: Andres Cervantes MD at 16:32 EDT ,
[2023-11-20 15:42] LABS: Absolute Neutrophil Count 10.3 X10^3/uL (2.0-7.7); Basophil# 0.05 X10^3/uL; Basophil% 0.4 % (0-1); Eosinophil# 0.07 X10^3/uL; Eosinophils% 0.6 % (0-5); Hematocrit 33.2 % (37-47); Hemoglobin 10.7 g/dL (12.0-15.0); Lymphocyte % 8.2 % (19-41); Mean Corp Hgb Conc 32.2 g/dL (32-36); Mean Corpuscular Hgb 31.2 pg (27.0-32.0); Mean Corpuscular Volume 96.8 fL (81-99); Mean Platelet Vol. 9.6 fl (6.2-12.0); Monocyte# 0.79 X10^3/uL; Monocyte% 6.4 % (0-10); NRBC Flagged by Analyzer 0 % (0-5); Neutrophil # 10.25 X10^3/uL (2.7-7.7); Neutrophil % 83.7 % (47-70); Platelet Count 380 K/mm3 (150-450); RBC Distribution Width CV 14.4 % (11.6-14.6); RBC Distribution Width SD 51.5 fl (35.1-43.9); Red Blood Count 3.43 M/mm3 (4.2-5.4); White Blood Count 12.3 K/mm3 (4.4-11.0)
[2023-11-20 15:47] LABS: D-Dimer Quantitative (DVT/PE) 0.42 FEU/ug/m (0.27-0.49)
[2023-11-20 15:51] LABS: BNP,B-Type NATRIURETIC PEPTIDE 90.6 pg/mL (0-100)
[2023-11-20] MEDS: Ipratropium/Albuterol Sulfate 3 ML AMPUL.NEB INHALATION (15:52)
[2023-11-20 16:07] LABS: Anion Gap 4 (5-15); BUN 28 mg/dL (7-18); BUN/Creat Ratio 19.3 RATIO (10-20); Calcium,Total 9.6 mg/dL (8.5-10.1); Chloride 108 mmol/L (98-107); Creatinine, Serum 1.45 mg/dL (0.55-1.02); EST Glomerular Filtration Rate 37 mL/min (>60); Est Glom Filt Rate - Afr Amer 45 mL/min (>60); Estimated Creatinine Clearance 36.17 ml/min; Glucose 99 mg/dL (74-106); Potassium 4.9 mmol/L (3.5-5.1); Sodium Level 136 mmol/L (136-145); Troponin-I HS 18 pg/mL (3.0-54.0)
[2023-11-20] MEDS: predniSONE 20 MG Tablet 40 MG PO (17:13)
[2023-11-20] MEDS: Doxycycline 100 MG CAPSULE PO (17:13)
== END 2023-11-20 17:19 | disposition home or self-care (01) ==
PROVIDERS: Emergency Provider Emergency Medicine; PCP Family Medicine; Visit Provider Emergency Medicine
DX: R06.00 Dyspnea, unspecified (principal); J44.1 Chronic obstructive pulmonary disease with (acute) exacerbation; E78.5 Hyperlipidemia, unspecified; I10 Essential (primary) hypertension; F17.210 Nicotine dependence, cigarettes, uncomplicated; Z79.51 Long term (current) use of inhaled steroids; Z79.82 Long term (current) use of aspirin; Z79.899 Other long term (current) drug therapy
CPT/HCPCS: 71045; 80048; 83880; 84443; 84484; 85025; 85379; 93005; 94640; 99285

== ENCOUNTER 2024-03-27 09:45 | Day surgery (SDC) | payer MEDICARE, MEDICAID, SELFPAY ==
--- NOTE | 2024-03-26 15:53 | PAT.ANESEVAL ---
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 When Was Last Pacemaker Check QUESTION #4 FULL TEXT: You/Your Family Experience fever (hyperthermia) with Anesthesia Last Oral Intake Last Oral intake: Last Oral Intake NPO since Meds taken in AM with sips of water? Meds patient instructed to take am of surgery PONV PONV - residential framing carpenter: PONV - residential framing carpenter Female Yes 03/26/24 14:50 HX of Motion Sickness No 03/26/24 14:50 HX of N/V After Surgery No 03/26/24 14:50 Non-Smoker No 03/26/24 14:50 Duration of Surgery greater Yes 03/26/24 14:50 than 60 minutes Number of Risk Factors 2 03/26/24 14:50 PONV Score Moderate Risk 03/26/24 14:50 Height & Weight Height & Weight: Anesthesia: Height & Weight Height 5 ft 2 in 02/19/24 14:38 Respiratory Assessment Respiratory Assessment - residential framing carpenter: Respiratory Tract Infection Hx - residential framing carpenter Hx Respiratory Tract Infection No 03/26/24 14:50 STOP Sleep Apnea STOP Sleep Apnea - residential framing carpenter: STOP Sleep Apnea - residential framing carpenter Hx Hypertension Yes: CONTROLLED WITH MED 03/26/24 14:50 Hx Sleep Apnea No 03/26/24 14:50 CPAP BIPAP Do you snore loudly (louder No 03/26/24 14:50 than talking or can be heard Do you often feel tired/ No 03/26/24 14:50 fatigued/ sleepy during daytime? Has anyone observed you stop No 03/26/24 14:50 breathing during sleep? STOP Results Negative 03/26/24 14:50 QUESTION #5 FULL TEXT : Do you snore loudly (louder than talking or can be heard through closed doors)? 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 Specify any problems Hx of Preganancy in last 3 No 03/26/24 14:50 Months Nurse Filling Out Transfusion DSCHRIBER 03/26/24 14:50 & Questions: Date: 03/26/24 03/26/24 14:50 Time: 14:52 03/26/24 14:50 Patient unable to answer at Yes 03/26/24 14:50 this time (ie. confused, unrespo /Reproduction History /Reproductive History - residential framing carpenter: /Reproductive Hx- residential framing carpenter Hx Now No 03/26/24 14:50 Gestational Age (in weeks): EDC: Hx Hx Para Hx Section SAB No 03/26/24 14:50 PFS Medical History (Updated 03/26/24 @ 15:03 by Odette Miranda) Lives in assisted living facility Wears glasses Wears dentures Post-menopausal Uses wheelchair Walker as ambulation aid Back pain Incontinence Shortness of breath on exertion History of stress test History of echocardiogram History of edema Cardiology follow-up encounter Upper extremity weakness Tremor Secondary pulmonary arterial hypertension Antral ulcer Diverticulosis Hiatal hernia Excessive somnolence disorder Essential tremor RLS (restless legs syndrome) Anxiety and depression Bilateral carotid artery stenosis Hypothyroidism COPD (chronic obstructive pulmonary disease) Nicotine dependence Essential (primary) hypertension Hyperlipidemia Obesity Home Medications ?Medication ?Instructions ?Recorded ?Last Taken ?Type levothyroxine 175 mcg tablet 175 mcg PO DAILY 11/20/23 Unknown History albuterol sulfate 2.5 mg/3 mL 2.5 mg inhalation Q4H PRN 01/15/24 Unknown History (0.083 %) solution for nebulization shortness of breath or wheezing fluoxetine 40 mg capsule 40 mg PO QDAY 01/15/24 Unknown History lovastatin 20 mg tablet 20 mg PO QHS 01/15/24 Unknown History lovastatin 40 mg tablet 40 mg PO DAILY 01/15/24 Unknown History aspirin 81 mg tablet,delayed 81 mg PO DAILY #30 tabs 02/07/24 Unknown Rx release (Adult Aspirin Regimen) olmesartan 20 mg tablet 20 mg PO QDAY #30 tabs 02/07/24 Unknown Rx spironolactone 25 mg tablet 25 mg PO DAILY #30 tabs 02/07/24 Unknown Rx umeclidinium 62.5 mcg/actuation 1 inh inhalation QDAY #30 ea 02/10/24 Unknown Rx blister powder for inhalation (Incruse Ellipta) albuterol sulfate 90 mcg/actuation 1 puff inhalation Q4H PRN 02/19/24 Unknown History aerosol inhaler (ProAir HFA) Shortness Of Breath Or Wheezing lorazepam 0.5 mg tablet 0.5 mg PO BID Anxiety 02/19/24 Unknown History bupropion HCl 150 mg tablet,12 hr 150 mg PO DAILY 03/26/24 Unknown History sustained-release furosemide 40 mg tablet (Lasix) 20 mg PO BID 03/26/24 Unknown History Allergy/AdvReac Type Severity Reaction Status Date / Time No Known Allergies Allergy Verified 02/19/24 14:41 Surgical History (Updated 03/26/24 @ 15:03 by Odette Miranda) History of right heart catheterization (02/13/21) History of left heart catheterization (2009) History of hysterectomy History of cholecystectomy Social History Smoking Status: Current every day smoker tobacco type: cigarettes Tobacco: How many years used: 40 Electronic Cigarette Use: not used second hand exposure: Yes alcohol intake: never substance use type: does not use caffeine: Yes Type: coffee Number of servings: 2 Audit: Pertinent Findings Pertinent Findings EKG Perinent findings: 11/20/2023 sinus rhythm 81 bpm normal EKG Echo (EF%) pertinent findings: 10/17/2022 normal size function EF 65% pulmonary artery pressure 46 mmHg Consult pertinent findings: Cardiology 02/19/2024 pulmonary hypertension chronic continue medication hypertension chronic well-controlled edema thought to be multifactorial continue spironolactone continue with leg elevation Pulmonary function results/spirometer pertinent findings: Chest x-ray 11/20/2023 no acute cardiopulmonary disease Recommendation Anesthesia Recommendation Anesthesia recommendation: OPTIMIZED for anesthesia
[2024-03-27] VITALS (13 sets, daily range): BP systolic 118–142; BP diastolic 48–61; PULSE 77–101; RESP 16–95; TEMP 36.2–36.5; O2SAT 88–97; BMI 33.8
[2024-03-27] MEDS: 0.9% Normal Saline (1000mL) 1,000 ML 15 ML IV (10:22)
--- NOTE | 2024-03-27 10:28 | PRE.ANES_ITS ---
ASA Classification* ASA Classification ASA Classification: 3 Assessment & Plan Anesthesia* Anesthesia Assessment Anesthesia Assessment: Discussed sedation and/or anesthesia options, risks, benefits, and alternatives with patient/parents/legal guardian/POA. Questions invited. The patient/parents/legal guardian/POA seems to understand and agrees to proceed with anesthesia plan. Reviewed the physical assessment, medical history, allergy history and patient home medications list prior to surgery/procedure/anesthetic and documented any changes. Performed airway and anesthesia risk assessments. Anesthesia Type Anesthesia Type: General and Block (Axillary block was discussed with the patient. 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.) Focused Labs Anesthesia Preop lab: CBC WBC 12.3 K/mm3 (4.4-11.0) H 11/20/23 15:23 RBC 3.43 M/mm3 (4.2-5.4) L 11/20/23 15:23 Hgb 10.7 g/dL (12.0-15.0) L 11/20/23 15:23 Hct 33.2 % (37-47) L 11/20/23 15:23 Plt Count 380 K/mm3 (150-450) 11/20/23 15:23 CHEMISTRY Potassium 4.9 mmol/L (3.5-5.1) 11/20/23 15:23 Sodium 136 mmol/L (136-145) 11/20/23 15:23 BUN 28 mg/dL (7-18) H 11/20/23 15:23 Creatinine 1.45 mg/dL (0.55-1.02) H 11/20/23 15:23 Glucose 99 mg/dL (74-106) 11/20/23 15:23 TSH 1.230 uIU/mL (0.358-3.740) 11/20/23 15:23 COAG Pre-Assessment Diagnosis/Proposed Procedure Planned Operative Procedure(s): LEFT DISTAL RADIUS REMOVAL OF HARDWARE REVISION ORIF Anesthesia History 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 When Was Last Pacemaker Check QUESTION #4 FULL TEXT: You/Your Family Experience fever (hyperthermia) with Anesthesia Last Oral Intake Last Oral intake: Last Oral Intake NPO since 21:00 03/27/24 10:14 Meds taken in AM with sips of Yes 03/27/24 10:14 water? 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 Female Yes 03/26/24 14:50 HX of Motion Sickness No 03/26/24 14:50 HX of N/V After Surgery No 03/26/24 14:50 Non-Smoker No 03/26/24 14:50 Duration of Surgery greater Yes 03/26/24 14:50 than 60 minutes Number of Risk Factors 2 03/26/24 14:50 PONV Score Moderate Risk 03/26/24 14:50 Height & Weight Height & Weight: Anesthesia: Height & Weight Height 5 ft 2 in 03/27/24 10:14 Weight: 84 kg 03/27/24 10:14 Body Mass Index (BMI) 33.8 03/27/24 10:14 Respiratory Assessment Respiratory Assessment - cnc operator machinist: Respiratory Tract Infection Hx - cnc operator machinist Hx Respiratory Tract Infection No 03/26/24 14:50 STOP Sleep Apnea STOP Sleep Apnea - cnc operator machinist: STOP Sleep Apnea - cnc operator machinist Hx Hypertension Yes: CONTROLLED WITH MED 03/26/24 14:50 Hx Sleep Apnea No 03/26/24 14:50 CPAP BIPAP Do you snore loudly (louder No 03/26/24 14:50 than talking or can be heard Do you often feel tired/ No 03/26/24 14:50 fatigued/ sleepy during daytime? Has anyone observed you stop No 03/26/24 14:50 breathing during sleep? STOP Results Negative 03/26/24 14:50 QUESTION #5 FULL TEXT : Do you snore loudly (louder than talking or can be heard through closed doors)? 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 Specify any problems Hx of Preganancy in last 3 No 03/26/24 14:50 Months Nurse Filling Out Transfusion DSCHRIBER 03/26/24 14:50 & Questions: Date: 03/26/24 03/26/24 14:50 Time: 14:52 03/26/24 14:50 Patient unable to answer at Yes 03/26/24 14:50 this time (ie. confused, unrespo /Reproduction History /Reproductive History - cnc operator machinist: /Reproductive Hx- cnc operator machinist Hx Now No 03/26/24 14:50 Gestational Age (in weeks): EDC: Hx Hx Para Hx Section SAB No 03/26/24 14:50 Active Medications Active Medications: Current Medications Generic Name Dose Route Start Last Admin Trade Name Freq PRN Reason Stop Dose Admin Cefazolin Sodium 2 gm/ N/A 20 mls @ 400 mls/hr 03/27/24 11:30 IV 03/27/24 11:32 PREOP ONE Sodium Chloride 1,000 mls @ 15 mls/hr 03/27/24 10:00 03/27/24 10:22 IV 04/01/24 23:19 15 mls/hr .Q48H JABIER Administration Protocol [facility] Medical History Lives in assisted living facility Wears glasses Wears dentures Post-menopausal Uses wheelchair Walker as ambulation aid Back pain Incontinence Shortness of breath on exertion History of stress test History of echocardiogram History of edema Cardiology follow-up encounter Upper extremity weakness Tremor Secondary pulmonary arterial hypertension Antral ulcer Diverticulosis Hiatal hernia Excessive somnolence disorder Essential tremor RLS (restless legs syndrome) Anxiety and depression Bilateral carotid artery stenosis Hypothyroidism COPD (chronic obstructive pulmonary disease) Nicotine dependence Essential (primary) hypertension Hyperlipidemia Obesity Home Medications ?Medication ?Instructions ?Recorded ?Last Taken ?Type levothyroxine 175 mcg tablet 175 mcg PO DAILY 11/20/23 03/27/24 History albuterol sulfate 2.5 mg/3 mL 2.5 mg inhalation Q4H PRN 01/15/24 Unknown History (0.083 %) solution for nebulization shortness of breath or wheezing fluoxetine 40 mg capsule 40 mg PO QDAY 01/15/24 03/27/24 History lovastatin 20 mg tablet 20 mg PO QHS 01/15/24 03/26/24 History lovastatin 40 mg tablet 40 mg PO DAILY 01/15/24 03/26/24 History aspirin 81 mg tablet,delayed 81 mg PO DAILY #30 tabs 02/07/24 03/26/24 Rx release (Adult Aspirin Regimen) olmesartan 20 mg tablet 20 mg PO QDAY #30 tabs 02/07/24 03/27/24 Rx spironolactone 25 mg tablet 25 mg PO DAILY #30 tabs 02/07/24 03/26/24 Rx umeclidinium 62.5 mcg/actuation 1 inh inhalation QDAY #30 ea 02/10/24 03/27/24 Rx blister powder for inhalation (Incruse Ellipta) albuterol sulfate 90 mcg/actuation 1 puff inhalation Q4H PRN 02/19/24 Unknown History aerosol inhaler (ProAir HFA) Shortness Of Breath Or Wheezing lorazepam 0.5 mg tablet 0.5 mg PO BID Anxiety 02/19/24 03/27/24 History bupropion HCl 150 mg tablet,12 hr 150 mg PO DAILY 03/26/24 03/27/24 History sustained-release furosemide 40 mg tablet (Lasix) 20 mg PO BID 03/26/24 03/27/24 History Allergy/AdvReac Type Severity Reaction Status Date / Time No Known Allergies Allergy Verified 03/27/24 10:10 Surgical History History of right heart catheterization (02/13/21) History of left heart catheterization (2009) History of hysterectomy History of cholecystectomy Social History Smoking Status: Current every day smoker tobacco type: cigarettes Tobacco: How many years used: 40 Electronic Cigarette Use: not used second hand exposure: Yes alcohol intake: never substance use type: does not use caffeine: Yes Type: coffee Number of servings: 2 Review of Systems (Anesthesia) ROS Narrative System reviewed and no additional complaints, except as documented.
--- NOTE | 2024-03-27 10:30 | RAD_ITS ---
STUDY: X-RAY - LEFT WRIST REASON FOR EXAM: Female, 78 years old. ORIF LT WRIST TECHNIQUE: 2 fluoroscopic intraoperative spot films of the left wrist were obtained. COMPARISON: None. FINDINGS: Fluoroscopic intraoperative spot films were obtained of the left wrist during surgery. The images demonstrate a metallic plate along the anterior margin of the distal radius with multiple fixation screws in place. There are also 3 guidewires entering the dorsal aspect of the hand and extending into the distal wrist. Normal visualized distal ulna. There is degenerative arthrosis of the triscaphe joint and first CMC joint. Intact carpal bones. RAD/Wrist 2 Views IMPRESSION: Fluoroscopic intraoperative spot films obtained of the left wrist during surgery. Electronically Signed: Ashok Larkin MD at 13:41 EST ,
[2024-03-27 10:33] LABS: Hematocrit 36.4 % (37-47); Hemoglobin 11.1 g/dL (12.0-15.0); Mean Corp Hgb Conc 30.5 g/dL (32-36); Mean Corpuscular Hgb 28.8 pg (27.0-32.0); Mean Corpuscular Volume 94.5 fL (81-99); Mean Platelet Vol. 9.8 fl (6.2-12.0); Platelet Count 492 K/mm3 (150-450); RBC Distribution Width CV 14.4 % (11.6-14.6); RBC Distribution Width SD 48.9 fl (35.1-43.9); Red Blood Count 3.85 M/mm3 (4.2-5.4); White Blood Count 10.2 K/mm3 (4.4-11.0)
[2024-03-27 10:55] LABS: Anion Gap 2 (5-15); BUN 29 mg/dL (7-18); BUN/Creat Ratio 17.9 RATIO (10-20); Chloride 108 mmol/L (98-107); Creatinine, Serum 1.62 mg/dL (0.55-1.02); EST Glomerular Filtration Rate 33 mL/min (>60); Est Glom Filt Rate - Afr Amer 40 mL/min (>60); Estimated Creatinine Clearance 29.23 ml/min; Glucose 113 mg/dL (74-106); Potassium 4.2 mmol/L (3.5-5.1); Sodium Level 139 mmol/L (136-145)
[2024-03-27] MEDS: Cefazolin 2 GM in Syringe IV (11:46)
[2024-03-27] MEDS: Bupiv/Epi 0.25% 30 ML Vial (13:15)
--- NOTE | 2024-03-27 13:35 | OP.PCM_ITS ---
Operative Report (Standard) Operative Information Date of Procedure: 03/27/24 Pre-Operative Diagnosis: 1. Left distal radius fracture dislocation 2. Failed orthopedic fixation left distal radius Post-Operative Diagnosis: 1. Left distal radius fracture dislocation 2. Failed orthopedic fixation left distal radius Surgery/Procedure Performed: 1. Left distal radius removal of hardware 2. Revision open reduction internal fixation left distal radius microeconomics professor: Yes Conference Specialist: Sarah Estrada Tasks completed by director of first impressions: Opening & closing and Implanting device Additional assistant terminal manager?: No Type of Anesthesia: General RN Documented Start/Stop Times: Operation Date: 03/27/24 11:30 Case Time Into Pre-Op 03/27/24 09:57 Out of Pre-Op 03/27/24 11:43 Anesthesia Start 03/27/24 11:46 Into Room 03/27/24 11:46 Procedure Start 03/27/24 12:10 Procedure End 03/27/24 13:26 Anesthesia End 03/27/24 13:32 Out of Room 03/27/24 13:32 Procedure Start Time: 12:10 Procedure Stop Time: 13:26 Select all DRAINS/GRAFTS/IMPLANTS that apply: Implanted device Implanted device details: Arthrex narrow 3-hole volar locking plate, combination of cortical and locking screws. 0.045 K wire x 3 Estimated Blood Loss: 10 cc Specimen collected: No Description of surgery: Patient was identified in the preoperative holding area by name, medical record number, and date of . The operative extremity was marked. All questions were answered to the patient satisfaction. At time of her procedure, patient was brought to the operative suite and positioned supine a standard operating table. General anesthesia was induced and LMA placed. All bony prominences were well-padded. Well-padded pneumatic tourniquet was applied to the left upper arm. We spun the bed 90 degrees. We prepped and draped the left upper extremity in normal, sterile orthopedic fashion. We performed timeout confirming the side, site, and operation to be performed. No concerns were voiced and elected proceed with surgery. 2 g Ancef was administered IV prior to tourniquet placed by anesthesia staff. I then exsanguinated the left upper extremity with a Esmarch bandage. Tourniquet inflated to 250 mmHg which remained up for approximately 45 minutes. Esmarch was removed. FCR approach was again utilized an old incision open. Remaining suture material was then excised. Blunt dissection was carried down to level distal radius. Early fracture callus was debrided with rongeur. I then remove the volar locking plate. Reduction of the carpus and volar radius segment was then reduced after complete release of the lateral intermuscular septum. Near-anatomic alignment was achieved. I reapplied the volar locking plate more distal and then prior to allow for buttress fixation of the small segment. Cortical screws were placed in the proximal portion of the plate and there was excellent reapproximation of the intra-articular fracture as well as reduction of the carpus. Distal cluster was then filled with locking screws and I used fluoroscopy to place the radial styloid screws into the small segment that had previously lost fixation. I then performed a 1 cm longitudinal incision to approach the radial styloid tip. First dorsal compartment retinaculum was released. I attempted to place a 3.5 millimeter screw through the radial styloid but was unsuccessful due to comminution. There was some subtle instability still noted and I elected to place a K wire through the radial styloid and then cross pin the joint percutaneously from the dorsal first webspace. Final fluoroscopic images were obtained. Wounds were copiously irrigated with normal saline solution. Tourniquet is deflated. Hemostasis was achieved with bipolar cautery. Dermis was reapproximated with buried 3-0 Vicryl suture. Skin was reapproximated with interrupted horizontal mattress 3-0 nylon suture. K wires were were bent at the skin edge and cut. Bulky sterile compression dressing was applied. Short arm fiberglass volar and dorsal slab splints were applied. She tolerated the procedure well without apparent complication. She was awakened from anesthesia next with the operative suite. She was transferred to her gurney and subsequently to PACU in stable condition. Surgical Findings: Failed fixation of a volar fracture dislocation distal radius. Stable following fixation. Complications Complications: No Admit VTE Documentation VTE Present on Admission: No VTE Mechan Device Prophylaxis: SCD's VTE Pharm Prophylaxis ordered?: No Reason prophylaxis not ordered: Treatment Not Indicated
--- NOTE | 2024-03-27 13:35 | PCM.POST.ANE ---
Anesthesia: Postop Eval I Current Vital Signs Temperature: 97.2 F Pulse Rate: 101 Blood Pressure: 133/60 Respiratory Rate: 18 Pulse Ox: 94 Assessment Airway patent: Yes Spontaneous unlabored respirations: Yes nausea: No Vomiting: No Anesthesia Complication: No Fluid Hydration Crystalloid volume administer (ml): 800 Total IV fluid infused: 800 Progress Note Anesthesia document: Postop Eval 1 completed: Yes
[2024-03-27] MEDS: Acetaminophen 500 MG Tablet 1000 MG PO (15:56)
--- NOTE | 2024-03-27 21:34 | POSTOPAN2_ITS ---
Anesthesia Postop Eval I Sum Postop Eval Completion status Anesthesia document: Postop Eval 1 completed: Yes Anesthesia Postop Eval I Summary Anesthesia Postop Eval I Summary: Anesthesia Postop Eval I: Assessment Summary Airway patent Yes 03/27/24 13:35 [email or web address] [email or web address] Spontaneous unlabored Yes 03/27/24 13:35 SHELF [email or web address].[email or web address] respirations Mental status nausea No 03/27/24 13:35 SHELF [email or web address].[email or web address] Vomiting No 03/27/24 13:35 SHELF [email or web address] Anesthesia Postop Eval I: Fluid Summary Crystalloid volume administer 800 03/27/24 13:35 SHELF [email or web address].[email or web address] (ml) Colloids volume administered ( ml) Blood Product volume administered (ml) Total IV fluid infused 800 03/27/24 13:35 SHELF [email or web address].[email or web address] Anesthesia Postop Eval I: Summary Notes Anesthesia Complication No 03/27/24 13:35 SHELF [email or web address].[email or web address] Anesthesia Complication Comment: Post-operative progress note Anesthesia: Postop Eval II Evaluation Mental status: Awake and Calm Pain Level: 2 nausea: No Vomiting: No Complications Anesthesia Complication: No
--- NOTE | 2024-03-27 21:34 | PCM.POSTANE2 ---
Anesthesia Postop Eval I Sum Postop Eval Completion status Anesthesia document: Postop Eval 1 completed: Yes Anesthesia Postop Eval I Summary Anesthesia Postop Eval I Summary: Anesthesia Postop Eval I: Assessment Summary Airway patent Yes 03/27/24 13:35 PLANING MACHINE OPERATOR.[email or web address] Spontaneous unlabored Yes 03/27/24 13:35 PLANING MACHINE OPERATOR.CSIR respirations Mental status nausea No 03/27/24 13:35 PLANING MACHINE OPERATOR.CSIR Vomiting No 03/27/24 13:35 PLANING MACHINE OPERATOR.CSIR Anesthesia Postop Eval I: Fluid Summary Crystalloid volume administer 800 03/27/24 13:35 PLANING MACHINE OPERATOR.CSIR (ml) Colloids volume administered ( ml) Blood Product volume administered (ml) Total IV fluid infused 800 03/27/24 13:35 PLANING MACHINE OPERATOR.CSIR Anesthesia Postop Eval I: Summary Notes Anesthesia Complication No 03/27/24 13:35 PLANING MACHINE OPERATOR.CSIR Anesthesia Complication Comment: Post-operative progress note Anesthesia: Postop Eval II Evaluation Mental status: Awake and Calm Pain Level: 2 nausea: No Vomiting: No Complications Anesthesia Complication: No
== END 2024-03-27 16:26 | disposition home or self-care (01) ==
LOC: SDC 09:49 → AC 09:52
PROVIDERS: Anesthesiology; PCP Family Medicine; Referring Provider Student in an Organized Health Care Education/Training Program; Visit Provider Student in an Organized Health Care Education/Training Program
PROC: (CPT 25608; principal; 2024-03-27 11:10)
DX: S52.572A Other intraarticular fracture of lower end of left radius, initial encounter for closed fracture (principal); J44.9 Chronic obstructive pulmonary disease, unspecified; X58.XXXA Exposure to other specified factors, initial encounter; I10 Essential (primary) hypertension; E78.00 Pure hypercholesterolemia, unspecified; F17.210 Nicotine dependence, cigarettes, uncomplicated; Z79.51 Long term (current) use of inhaled steroids; Z79.82 Long term (current) use of aspirin; Z79.899 Other long term (current) drug therapy
CPT/HCPCS: 25608; 01830; 73100; 76000; 80048; 84443; 85027; C1713; A4216; J2405

== ENCOUNTER → 2024-06-03 | Outpatient (CLI) | payer MEDICARE, MEDICAID, SELFPAY ==
--- NOTE | 2024-06-03 13:13 | CT_ITS ---
EXAM: CT Chest, Lung Cancer Screening Without Intravenous Contrast CLINICAL INDICATION: SMOKER TECHNIQUE: Axial computed tomography images of the chest without intravenous contrast using low dose (LDCT) lung cancer screening protocol. This CT exam was performed using one or more of the following dose reduction techniques: automated exposure control, adjustment of the mA and/or kV according to patient size, and/or use of iterative reconstruction technique. COMPARISON: CT Lung Cancer Screening dated 05/15/2023 FINDINGS: LUNGS AND PLEURAL SPACES: Lung emphysema. Lingula, right lower lobe, and right middle lobe atelectasis or scarring. The medial aspect of the right middle lobe atelectasis or scarring has a nodular configuration, measuring up to 7 mm, unchanged.. No pneumothorax. No significant effusion. No new suspicious pulmonary nodules. HEART: Unremarkable. No cardiomegaly. No significant pericardial effusion. No significant coronary artery calcifications. BONES/JOINTS: Unremarkable. No acute fracture. No dislocation. SOFT TISSUES: Unremarkable. VASCULATURE: Unremarkable. No thoracic aortic aneurysm. LYMPH NODES: Unremarkable. No enlarged lymph nodes. CT/Low Dose CT Lung Screening IMPRESSION: 1. No new suspicious pulmonary nodules. 2. LUNG-RADS 2: Benign. Continue low-dose CT screening of the chest in 12 mon ths is recommended. Reading Location: [facility]
== END | disposition home or self-care (01) ==
LOC: CT 13:11
PROVIDERS: PCP Family Medicine; Referring Provider Nurse Practitioner Acute Care; Visit Provider Nurse Practitioner Acute Care
DX: Z12.2 Encounter for screening for malignant neoplasm of respiratory organs (principal); F17.210 Nicotine dependence, cigarettes, uncomplicated
CPT/HCPCS: 71271

== ENCOUNTER → 2024-07-10 | Outpatient (CLI) | payer MEDICARE, MEDICAID, SELFPAY | END | disposition home or self-care (01) | PROVIDERS: PCP Family Medicine; Referring Provider Nurse Practitioner Acute Care; Visit Provider Nurse Practitioner Acute Care | DX: R09.02 Hypoxemia (principal) | CPT/HCPCS: 94762 ==

== ENCOUNTER → 2024-09-23 | Outpatient (CLI) | payer MEDICARE, MEDICAID, SELFPAY ==
[2024-09-23 12:40] LABS: AST(SGOT) 17 U/L (<=31); Alanine Aminotransfer ALT/SGPT 12 U/L (<=34); Albumin, Serum 4.0 g/dL (3.4-4.8); Alkaline Phosphatase 92 U/L (35-104); Anion Gap 11 (5-15); BUN 58 mg/dL (4-19); BUN/Creat Ratio 24.9 RATIO (10-20); Calcium,Total 9.9 mg/dL (7.6-11.0); Carbon Dioxide 21.0 mmol/L (21.0-32.0); Chloride 105 mmol/L (98-108); Cholesterol 115 mg/dL (<=200); Globulin 4.0 g/dL (2.2-4.2); Glucose 91 mg/dL (70-99); Low Density Lipoprotein Calc. 38 mg/dL; Potassium 5.7 mmol/L (3.3-5.1); Triglycerides 116 mg/dL; Very Low Density Lipoprotein 23 mg/dL (5-40); cholesterol:hdl ratio screen 2.13
== END | disposition home or self-care (01) ==
LOC: LAB 10:50
PROVIDERS: PCP Family Medicine; Referring Provider Student in an Organized Health Care Education/Training Program; Visit Provider Student in an Organized Health Care Education/Training Program
DX: I27.20 Pulmonary hypertension, unspecified (principal); I10 Essential (primary) hypertension; E78.5 Hyperlipidemia, unspecified
CPT/HCPCS: 36415; 80053; 80061

== ENCOUNTER → 2025-01-22 | Outpatient (CLI) | payer MEDICARE, MEDICAID, SELFPAY ==
--- NOTE | 2025-01-22 13:20 | SP.MBSS_ITS ---
Modified Barium Swallow
--- NOTE | 2025-01-22 13:20 | ST.MBS ---
Modified Barium Swallow Patient Information Study Date: 01/22/25 Study Time: 13:00 Direct Billable Minutes: 97 Total Minutes procedure & reportin Diagnosis: Dysphagia R13.10 Referring Physician: Lavern Rosa NP Reason for Referral: Assess swallow function, risk for aspiration, and determine recommendations for LRD textures and any necessary dysphagia interventions. Medical History: Per chart review, the patient recently went to [place] ED for hypoxic event resulting in intubation w/ transfer to [place]. She was hospitalized at [facility] from 12/09/2024-12/13/2024 for management of respiratory failure. Susie Lorenzo NP, suspects aspiration vs. mucous plug precipitated her hypoxic event, so this MBSS was ordered. Per patient and chart review, she had dinner at 5PM the evening of the event. Around 8PM, she had the hypoxic event and was slumped over gasping for air w/ pt being sent to the ED. Patient reports coughing w/ food. She reports choking concerns w/ food, which she described as foods becoming caught in her throat, no wanting to go down; however, typically she can breathe through these episodes and she has never needed the Heimlich. She reports avoiding foods that are difficult to chew, such as tough meats. Medical History Lives in assisted living facility Wears glasses Wears dentures Post-menopausal Uses wheelchair Walker as ambulation aid Back pain Incontinence Shortness of breath on exertion History of stress test History of echocardiogram History of edema Cardiology follow-up encounter Upper extremity weakness Tremor Secondary pulmonary arterial hypertension Antral ulcer Diverticulosis Hiatal hernia Excessive somnolence disorder Essential tremor RLS (restless legs syndrome) Anxiety and depression Bilateral carotid artery stenosis Hypothyroidism COPD (chronic obstructive pulmonary disease) Nicotine dependence Essential (primary) hypertension Hyperlipidemia Obesity Current Diet Ordered: Regular textures, avoids tough meats /Thin liquids Dentition: Upper Dentures and Lower Dentures Mental Status: WNL Respiratory Status: Oxygenating on Room Air Penetration-Aspiration Scale Penetration-Aspiration Scale: OBJECTIVE ASSESSMENT OF SWALLOW FUNCTION (QUANTITATIVE ? PER TRIAL): PENETRATION / ASPIRATION SCALE (ROCHE): 1 = does not enter airway 2 = enters airway/above vocal folds/ejected 3 = enters airway/above vocal folds/not ejected 4 = enters airway/contacts vocal folds/ejected 5 = enters airway/contacts vocal folds/not ejected 6 = enters airway/below vocal folds/ejected 7 = enters airway/below vocal folds/not ejected despite effort 8 = enters airway/below vocal folds/no effort VIDEOFLOROSCOPIC SCALE SCORE (ROCHE): Grade I = aspiration of material that has penetrated into the laryngeal vestibule, intact cough reflex Grade II = aspiration < 10 % of the bolus, intact cough reflex Grade III = aspiration of < 10 % of the bolus, reduced cough reflex or aspiration of > 10 % of the bolus, intact cough reflex Grade IV = aspiration of > 10 % of the bolus, reduced cough reflex Penetration-Aspiration Scale Score Thin Liquid via teaspoon: Result: 1= does not enter airway Thin Liquid via teaspoon Trial 2: Result: 1= does not enter airway Thin Liquid via sequential sips: cup: Result: 2= enter airway/above vocal folds/ejected Comment: Esophageal screen - Esophageal retention of thin liquids in the middle and lower esophagus w/ retrograde flow to the upper esophagus. Esophagus appears tortuous. Pt sensate of retention of liquids. Pudding via teaspoon: Result: 1= does not enter airway Comment: Esophageal screen - Minimal retention in the middle and lower esophagus. 1/2 Cookie: Result: 1= does not enter airway Comment: Esophageal screen - Retention of cookie in the middle and lower esophagus w/ retrograde flow to the upper esophagus. Thin Liquid via single sip: straw: Result: 2= enter airway/above vocal folds/ejected Comment: Esophageal screen - Liquid wash effectively cleared majority of cookie through the LES. Minimal retention of barium in the lower esophagus. Oral Phase Labial Seal: Interlabial escape, no progression to anterior lip Tongue Control During Bolus Hold: Posterior escape of greater than half of bolus Bolus Preparation/Mastication: Slow prolonged chewing/mashing with complete recollection Bolus Transport/Lingual Motion: Repetitive/disorganized tongue motion Oral Residue: Majority of bolus remaining (piecemeal deglutition of pudding and cookie) Pharyngeal Phase Initiation of Pharyngeal Swallow: Bolus head in pyriforms Soft Palate Elevation: Trace column of contrast/air between soft palate and pharyngeal wall Laryngeal Elevation: Comp. Superior move thyroid cart w/comp. apprx arytenoid cart-epig pet Anterior Hyoid Excursion: Partial anterior movement Epiglottic Movement: Complete inversion Laryngeal Vestibule Closure at Height of Swallow: Incomplete; narrow column of air/contrast in laryngeal vestibule Pharyngeal Stripping Wave: Present - complete Pharyngoesophageal Segment Opening: Parital distension and partial duration; parital obstruction of flow Tongue Base Retraction: Wide column of contrast between tongue base & post. pharyngeal wall Pharyngeal Residue: Collection of residue within or on pharyngeal structures Esophageal Phase Esophageal Clearance: Esophageal retention w/ retrograde flow through pharyngoesophageal seg Diagnosis/Impression Diagnosis: Mild oropharyngeal dysphagia R13.12; Esophageal dysphagia R13.14 .: Image 1. Esophageal screen of thin liquids via sequential cup sips. Tortuous esophagus. MBS Impressions: The oral phase is primarily marked by... -Posterior loss of >1/2 of thin liquids to the pyriform sinuses prior to swallow onset w/ sequential thin sips by cup. -Lingual pumping w/ A-P transport. -Piecemeal deglutition w/ pudding and cookie. -Slowed, but complete mastication. The pharyngeal phase is primarily marked by... -Delayed swallow onset. -Decreased pharyngeal motility due to decreased TB retraction evident during liquid trials. Good pharyngeal clearance of pudding and cookie. -Decreased anterior hyoid excursion most notable during sequential sips of thin liquids. Laryngeal penetration of thin liquids 2X w/ complete ejection. No aspiration observed. The esophageal phase is primarily marked by... -Tortuous appearing esophagus. Image attached above. -Small CP bar the level of C5 w/ trace retention and retrograde flow to the pyriform sinuses. -Retention of sequential sips of thin liquids by sequential cup sips and cookie trial in the middle and lower esophagus w/ retrograde flow to the upper esophagus. A single liquid wash cleared majority of cookie. Recommendations Diet: Regular Textures (Easy to Chew Meats - Moisten Dry Textures) and Thin Liquids Comment: If sensation of retention, reflux, or regurgitation despite use of strategies below, STOP meal and resume at a later time. Compensatory Strategies: Small Bites, Small Sips (One at a time), Slow Rate, Alternate bites/solids and sips/liquids (Take a sip after every 1-2 bites) and Sitting upright (During and 30-60min after meals) Recommend Repeat Modified Barium Swallow: No Need for Skilled Speech Therapy Services: Yes Comment: -Train the patient in aspiration and reflux aspiration precautions. -Ongoing assessment of diet tolerance. -Train the patient in GERD management strategies. -Train the patient in oropharyngeal exercise program (lingual coordination, lingual resistance, Nargis Orr). Recommended Referrals: GI Consult Education Completed: 1. Described result of evaluation. and 2. Pt understands evaluation & agrees with goals and treatment plan. Status Active ST Patient: Active Contact Information [facility] Speech Therapy:: Shwetha Rajan M.A. CCC-[employer]? Speech-Language Pathologist?? [facility] [address] [place] [address]? [email or web address]?? [phone]
== END | disposition home or self-care (01) ==
LOC: RAD 13:17
PROVIDERS: PCP Family Medicine; Referring Provider Nurse Practitioner Acute Care; Visit Provider Nurse Practitioner Acute Care
DX: R13.10 Dysphagia, unspecified (principal)
CPT/HCPCS: 74230; 92611

== ENCOUNTER → 2025-03-15 | Outpatient (CLI) | payer MEDICARE, MEDICAID, SELFPAY | END | disposition home or self-care (01) | LOC: SL 19:53 | PROVIDERS: PCP Family Medicine; Referring Provider Family Medicine; Visit Provider Family Medicine | DX: G47.30 Sleep apnea, unspecified (principal) | CPT/HCPCS: 95810 ==